=== PATIENT | female | born 1940 | race Two or more races ===

== ENCOUNTER 2017-06-22 18:07 | Emergency (ER) | payer MEDICARE, OTHER ==
[2017-06-22 18:49] VITALS: BP 180/81
--- NOTE | 2017-06-22 19:02 | EDM.PDOC ---
<Elver Leija W - Last Filed: 06/22/17 19:13> ED HPI GENERAL MEDICAL PROBLEM - General Chief Complaint: General Stated Complaint: Not feeling well Time Seen by Provider: 06/22/17 18:31 Source of Information: Reports: Patient, Family History Limitations: Reports: Language Barrier, Other (hard of hearing) - History of Present Illness INITIAL COMMENTS - FREE TEXT/NARRATIVE: Pt. presents to ER with daughter and son. Pt. has been complaining of "not feeling well" to family today, but states that she has been fatigued for several days. Family is concerns as the pt. has had elevated blood sugars at home-often in the 300-400 range. Today, the pts. blood sugar was approx. 250mg/ dl. Family states that the pt. previously had refused to take insulin, but stated that she is currently taking 16mg/dl of Lantus. The pt., however, states that she is taking 18 units per her last clinic visit with Dr. Alon Guzman. Family states that the pt. is often untruthful about how much insulin she takes, and previously had been taking 14 units instead of 16 units of lantus. The pt. resides in an [facility] in [place]. She previously was at [facility]. She does not get home health. Family states that she is very non-compliant and often eats a large box of doughnuts on her own. She also has a diffuse rash to her extremities and torso for which she has seen derm. She is currently on oral prednisone and triamcinolone cream for this. This rash is extremely pruritic and is very stressful for the pt. Duration: Other (Approx. 1 week.) Location: Reports: Generalized Severity: Moderate Associated Symptoms: Reports: Rash, Other Generalized Pain Score (Numeric/FACES): 2 - Related Data Allergies Allergy/AdvReac Type Severity Reaction Status Date / Time No Known Allergies Allergy Verified 11/05/16 03:58 Home Meds: Home Meds Aspirin [Halfprin] 81 mg PO DAILY@1200 #365 tab.ec 03/22/14 [Rx] Omeprazole Magnesium [Prilosec Otc] 20 mg PO DAILY 10/20/15 [History] metFORMIN [Glucophage] 1 tab PO BIDM 01/17/16 [History] Cetirizine HCl [Zyrtec] 10 mg PO DAILY 06/22/17 [History] Doxepin [SINEquan] 10 mg BEDTIME 06/22/17 [History] Insulin Glarg,Human.Rec.Analog [LantUS Solostar] 18 units BEDTIME 06/22/17 [ History] Triamcinolone Acetonide [Triamcinolone Acetonide 0.1% Crm] 1 applic ASDIRECTED PRN 06/22/17 [History] diphenhydrAMINE [Benadryl] 25 mg PO BEDTIME 06/22/17 [History] Past Medical History HEENT History: Reports: Other (See Below) Other HEENT History: presbyopia, astigmatism, myopia Cardiovascular History: Reports: Hypertension Respiratory History: Reports: Other (See Below) Other Respiratory History: chronic SOB Gastrointestinal History: Reports: Diverticulosis 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 (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 Below) Other OB/BYN History: puritus vulva, vulvar dermatitis Musculoskeletal History: Reports: Other (See Below) Other Musculoskeletal History: multiple pelvic fractures Neurological History: Reports: Vertigo Endocrine/Metabolic History: Reports: Diabetes, Type II - Past Surgical History GI Surgical History: Reports: Appendectomy, Other (See Below) Social & Family History - Tobacco Use Smoking Status *Q: Unknown Ever Smoked Years of Tobacco use: 40 Used Tobacco, but Quit: Yes Month Tobacco Last Used: January Second Hand Smoke Exposure: No - Alcohol Use Days Per Week of Alcohol Use: 0 - Recreational Drug Use Recreational Drug Use: No ED ROS GENERAL - Review of Systems Review Of Systems: See Below Constitutional: Reports: Malaise, Fatigue HEENT: Reports: No Symptoms Respiratory: Reports: No Symptoms Cardiovascular: Reports: No Symptoms Endocrine: Reports: No Symptoms GI/Abdominal: Reports: No Symptoms : Reports: No Symptoms Musculoskeletal: Reports: No Symptoms Skin: Reports: Pruritis, Rash, Erythema Neurological: Reports: No Symptoms Psychiatric: Reports: No Symptoms Hematologic/Lymphatic: Reports: No Symptoms Immunologic: Reports: Other (Intensely pruritic rash to torso, extremities, and scalp.) ED EXAM, GENERAL - Physical Exam Exam: See Below Exam Limited By: Other (Pt. very hard of hearing) General Appearance: Alert, No Apparent Distress Eye Exam: Bilateral Eye: Normal Inspection Ears: Normal External Exam Nose: Normal Inspection, Normal Mucosa, No Blood Throat/Mouth: Normal Inspection, Normal Lips, Normal Teeth, Normal Oropharynx, Normal Voice, No Airway Compromise Head: Atraumatic, Normocephalic Neck: Normal Inspection, Supple, Non-Tender Respiratory/Chest: No Respiratory Distress, Lungs Clear, Normal Breath Sounds, No Accessory Muscle Use, Chest Non-Tender Cardiovascular: Normal Peripheral Pulses, Regular Rate, Rhythm, No Edema, No Murmur GI/Abdominal: Normal Bowel Sounds, Soft, Non-Tender, No Mass Back Exam: Normal Inspection, Full Range of Motion, Other (fine, raised excoriated rash to mid lower back) Extremities: Normal Inspection, Normal Range of Motion, Non-Tender, No Pedal Edema, Redness, Other (excoriations and erythema noted to extremities.) Neurological: Alert, Oriented, CN II-XII Intact Psychiatric: Normal Affect Skin Exam: Warm, Dry, Rash (Fine, raised rash to torso and extremities), Other Lymphatic: No Adenopathy Course - Vital Signs Last Recorded V/S: Last Vital Signs Temp 36.0 C 06/22/17 18:31 Pulse 98 06/22/17 18:31 Resp 20 06/22/17 18:31 BP 180/81 H 06/22/17 18:31 Pulse Ox - Orders/Labs/Meds Labs: Laboratory Tests 06/22/17 06/22/17 06/22/17 Range/Units 18:50 18:50 18:50 WBC 11.5 H (4.0-10.0) x10^3/uL RBC 4.26 (4.00-5.50) x10^6/uL Hgb 12.4 (12.0-16.0) g/dL Hct 36.8 (33.0-47.0) % MCV 86.4 (78.0-93.0) fL MCH 29.1 (26.0-32.0) pg MCHC 33.7 (32.0-36.0) g/dL RDW Coeff of Leslie 13.3 (10.0-15.0) % Plt Count 484 H (130-400) x10^3/uL Neut % (Auto) 52.7 (50.0-80.0) % Lymph % (Auto) 21.3 L (25.0-50.0) % [place] % (Auto) 8.8 (2.0-11.0) % Eos % (Auto) 15.9 H (0.0-4.0) % Baso % (Auto) 1.3 H (0.2-1.2) % Sodium 137 (136-145) mmol/L Potassium 4.4 (3.5-5.1) mmol/L Chloride 100 (98-107) mmol/L Carbon Dioxide 28 (21-32) mmol/L BUN 22 H (7-18) mg/dL Creatinine 0.7 (0.55-1.02) mg/dL Est Cr Clr Drug Dosing 46.01 mL/min Estimated GFR (MDRD) > 60 Glucose 243 H (74-106) mg/dL Hemoglobin A1c 9.7 H (4.5-6.2) % Calcium 9.7 (8.5-10.1) mg/dL Corrected Calcium 10.26 H (8.5-10.1) mg/dL Total Bilirubin 0.4 (0.2-1.0) mg/dL AST 26 (15-37) U/L ALT 39 (14-59) U/L Alkaline Phosphatase 191 H (46-116) U/L Total Protein 7.4 (6.4-8.2) g/dL Albumin 3.3 L (3.4-5.0) g/dL Globulin 4.1 Albumin/Globulin Ratio 0.80 Urine Color (YELLOW) Urine Appearance (CLEAR) Urine pH (5.0-8.0) Ur Specific [place] Urine Protein (NEGATIVE) mg/dL Urine Glucose (UA) (NEGATIVE) mg/dL Urine Ketones (NEGATIVE) mg/dL Urine Occult Blood (NEGATIVE) Urine Nitrite (NEGATIVE) Urine Bilirubin (NEGATIVE) Urine Urobilinogen (0.2) EU/dL Ur Leukocyte Esterase (NEGATIVE) Urine RBC (NOT SEEN) /HPF Urine WBC (NOT SEEN) /HPF Ur Squamous Epith Cells (NEGATIVE) /HPF Amorphous Sediment Urine Bacteria (NEGATIVE) /HPF Granular Casts (NEGATIVE) /HPF Urine Mucus (NEGATIVE) /LPF 06/22/17 Range/Units 19:03 WBC (4.0-10.0) x10^3/uL RBC (4.00-5.50) x10^6/uL Hgb (12.0-16.0) g/dL Hct (33.0-47.0) % MCV (78.0-93.0) fL MCH (26.0-32.0) pg MCHC (32.0-36.0) g/dL RDW Coeff of Leslie (10.0-15.0) % Plt Count (130-400) x10^3/uL Neut % (Auto) (50.0-80.0) % Lymph % (Auto) (25.0-50.0) % [place] % (Auto) (2.0-11.0) % Eos % (Auto) (0.0-4.0) % Baso % (Auto) (0.2-1.2) % Sodium (136-145) mmol/L Potassium (3.5-5.1) mmol/L Chloride (98-107) mmol/L Carbon Dioxide (21-32) mmol/L BUN (7-18) mg/dL Creatinine (0.55-1.02) mg/dL Est Cr Clr Drug Dosing mL/min Estimated GFR (MDRD) Glucose (74-106) mg/dL Hemoglobin A1c (4.5-6.2) % Calcium (8.5-10.1) mg/dL Corrected Calcium (8.5-10.1) mg/dL Total Bilirubin (0.2-1.0) mg/dL AST (15-37) U/L ALT (14-59) U/L Alkaline Phosphatase (46-116) U/L Total Protein (6.4-8.2) g/dL Albumin (3.4-5.0) g/dL Globulin Albumin/Globulin Ratio Urine Color Yellow (YELLOW) Urine Appearance Slightly cloudy H (CLEAR) Urine pH 5.0 (5.0-8.0) Ur Specific [place] 1.025 Urine Protein >=300 H (NEGATIVE) mg/dL Urine Glucose (UA) 500 H (NEGATIVE) mg/dL Urine Ketones Negative (NEGATIVE) mg/dL Urine Occult Blood Small H (NEGATIVE) Urine Nitrite Negative (NEGATIVE) Urine Bilirubin Negative (NEGATIVE) Urine Urobilinogen 0.2 (0.2) EU/dL Ur Leukocyte Esterase Negative (NEGATIVE) Urine RBC 0-5 (NOT SEEN) /HPF Urine WBC 0-5 (NOT SEEN) /HPF Ur Squamous Epith Cells Rare (NEGATIVE) /HPF Amorphous Sediment Moderate Urine Bacteria Few H (NEGATIVE) /HPF Granular Casts Few H (NEGATIVE) /HPF Urine Mucus Few H (NEGATIVE) /LPF Departure - Departure Disposition: Home, Self-Care 01 Clinical Impression: Hyperglycemia due to type 2 diabetes mellitus, Urticaria - Discharge Information Instructions: Eczema, Pruritus Referrals: Merlin Flores MD [Primary Care Provider] - Forms: ED Department Discharge Additional Instructions: I suggest follow up with her primary care provider Dr. Merlin Guzman in the next 7-10 days. For your skin condition I recommend applying a thick emollient cream such as Eucerin, Cetaphil, or Neutrogena. With the son directly after showering in a thick paste. He will want to probably wear a undershirt as this may cause some staining of your garments due to the high oil content. You should take the Zyrtec in the morning, and the Benadryl at night before bed. He also need to have better control of her diabetes. I would also recommend that someone come in to help you administer your insulin. Please call us with any questions or concerns. MLP Sign Off - Signature Requirements MLP Sign Off: Yes :: Pt. care was transferred to JOSSY Randhawa at 1913 (shift change). Please refer to his documentation regarding the disposition of this pt. <Guillermo Castillo - Last Filed: 06/22/17 19:58> ED HPI GENERAL MEDICAL PROBLEM - History of Present Illness INITIAL COMMENTS - FREE TEXT/NARRATIVE: Care assumed from Elver Leija at 1905 Course - Re-Assessments/Exams Free Text/Narrative Re-Assessment/Exam: 06/22/17 19:47 Review of labs; patient does have a slight elevation of WBCs at 11.5. Patient's hemoglobin A1c is 9.7, potassium is 4.4, sodium is 137, urinalysis is negative for acute UTI. Urine does show some protein as well as glucose. Urine is negative for nitrates or leukocyte esterase. 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; Z79.4 - correction (current) use of insulin; Z79.4 - tank terminal gauger (current) use of insulin; Z79.4 - tank terminal gauger (current) use of insulin (2) Generalized pruritus SNOMED Code(s): 522732258 Code(s): L29.9 - PRURITUS, UNSPECIFIED Status: Acute Priority: Low Current Visit: No (3) Urticaria SNOMED Code(s): 635336619 Code(s): L50.9 - URTICARIA, UNSPECIFIED Status: Acute Priority: Low Current Visit: Yes - Problem List Review Problem List Initiated/Reviewed/Updated: Yes - Assessment/Plan Assessment:: Hyperglycemia Atopic dermatitis Plan: I suggest follow up with her primary care provider Dr. Merlin Guzman in the next 7-10 days. For your skin condition I recommend applying a thick emollient cream such as Eucerin, Cetaphil, or Neutrogena. With the son directly after showering in a thick paste. He will want to probably wear a undershirt as this may cause some staining of your garments due to the high oil content. You should take the Zyrtec in the morning, and the Benadryl at night before bed. He also need to have better control of her diabetes. I would also recommend that someone come in to help you administer your insulin. Please call us with any questions or concerns.
[2017-06-22 19:19] LABS: CHLORIDE,CL 100 mmol/L (98-107); SODIUM,NA 137 mmol/L (136-145)
== END 2017-06-22 20:05 | disposition home or self-care (01) ==
LOC: VM.ED 18:07
DX: E11.65 Type 2 diabetes mellitus with hyperglycemia (principal); L50.9 Urticaria, unspecified; I10 Essential (primary) hypertension; Z79.82 Long term (current) use of aspirin; Z79.4 Long term (current) use of insulin; Z79.899 Other long term (current) drug therapy
CPT/HCPCS: 36415; 80053; 81001; 83036; 83605; 85025; 99284; 99284-GF

== ENCOUNTER 2017-09-14 18:44 | Emergency (ER) | payer MEDICARE, OTHER ==
--- NOTE | 2017-09-14 19:19 | EDM.PDOC ---
<Elver Leija W - Last Filed: 09/14/17 19:13> ED HPI GENERAL MEDICAL PROBLEM - General Chief Complaint: Chest Pain Stated Complaint: Chest pain, back pain, fatigue, dizziness, and headache Time Seen by Provider: 09/14/17 19:15 Source of Information: Reports: Patient History Limitations: Reports: No Limitations - History of Present Illness INITIAL COMMENTS - FREE TEXT/NARRATIVE: Pt. presents to ER with a constellation of symptoms. Pt. states that she has been experiencing point tenderness to her chest and back yesterday. She states that she is extremely fatigued and dizzy. She states that her appetite is poor, and that she isn't drinking water "like she should". She denies any rashes. No vomiting or diarrhea, but complains of diffuse abdominal pain and nausea. - Related Data Allergies Allergy/AdvReac Type Severity Reaction Status Date / Time No Known Allergies Allergy Verified 11/05/16 03:58 Home Meds: Home Meds Aspirin [Halfprin] 81 mg PO DAILY@1200 #365 tab.ec 03/22/14 [Rx] Omeprazole Magnesium [Prilosec Otc] 20 mg PO DAILY 10/20/15 [History] metFORMIN [Glucophage] 1 tab PO BIDM 01/17/16 [History] Cetirizine HCl [Zyrtec] 10 mg PO DAILY 06/22/17 [History] Doxepin [SINEquan] 10 mg BEDTIME 06/22/17 [History] Insulin Glarg,Human.Rec.Analog [LantUS Solostar] 18 units BEDTIME 06/22/17 [ History] Triamcinolone Acetonide [Triamcinolone Acetonide 0.1% Crm] 1 applic ASDIRECTED PRN 06/22/17 [History] diphenhydrAMINE [Benadryl] 25 mg PO BEDTIME 06/22/17 [History] Past Medical History HEENT History: Reports: Other (See Below) Other HEENT History: presbyopia, astigmatism, myopia Cardiovascular History: Reports: Hypertension Respiratory History: Reports: Other (See Below) Other Respiratory History: chronic SOB Gastrointestinal History: Reports: Diverticulosis 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 (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 Below) Other OB/BYN History: puritus vulva, vulvar dermatitis Musculoskeletal History: Reports: Other (See Below) Other Musculoskeletal History: multiple pelvic fractures Neurological History: Reports: Vertigo Endocrine/Metabolic History: Reports: Diabetes, Type II Dermatologic History: Reports: Urticaria, Other (See Below) Other Dermatologic History: generalized rash - Past Surgical History GI Surgical History: Reports: Appendectomy, Other (See Below) Social & Family History - Tobacco Use Smoking Status *Q: Unknown Ever Smoked Years of Tobacco use: 40 Packs/Tins Daily: 0.5 Used Tobacco, but Quit: Yes Month Tobacco Last Used: January Second Hand Smoke Exposure: No - Alcohol Use Days Per Week of Alcohol Use: 0 - Recreational Drug Use Recreational Drug Use: No Course - Orders/Labs/Meds Orders: Active Orders 24 hr Category Date Time Status RT Aerosol Therapy [RC] ASDIRECTED Care 09/14/17 20:38 Ordered Chest 2V [CR] Stat Exams 09/14/17 19:07 Ordered Sodium Chloride 0.9% [Saline Flush] Med 09/14/17 19:20 Ordered 10 ml FLUSH ASDIRECTED PRN Saline Lock Insert [OM.PC] Routine Oth 09/14/17 19:20 Ordered Medication Orders Sodium Chloride (Saline Flush) 10 ml FLUSH ASDIRECTED PRN PRN Reason: Keep Vein Open Meds: Medications Generic Name Dose Route Start Last Admin Trade Name Freq PRN Reason Stop Dose Admin Sodium Chloride 10 ml 09/14/17 19:20 Saline Flush FLUSH ASDIRECTED PRN Keep Vein Open Discontinued Medications Generic Name Dose Route Start Last Admin Trade Name Freq PRN Reason Stop Dose Admin Albuterol/Ipratropium 3 ml 09/14/17 20:38 09/14/17 20:40 Duoneb 3.0-0.5 Mg/3 Ml NEB 09/14/17 20:39 3 ml ONETIME ONE Administration Lactated Ringer's 1,000 mls @ 999 mls/hr 09/14/17 19:20 09/14/17 19:45 Ringers, Lactated IV 09/14/17 20:20 999 mls/hr .BOLUS ONE Administration Departure - Departure Disposition: Home, Self-Care 01 Clinical Impression: Dehydration symptoms - Discharge Information Instructions: Nonspecific Chest Pain, [id number], Chronic Obstructive Pulmonary Disease, [id number], Smoking Cessation, Tips for Success, Easy-to- Read Forms: ED Department Discharge Additional Instructions: Your influenza screen was negative. You need to stay hydrated. At least 8 8 ounce glasses of water. Your x-ray showed COPD so you need to stop smoking and visit with your primary doctor regarding starting on an inhaler of some type. Follow up with your primary doctor for additional symptoms. If you have any questions or concerns, please call. - My Orders Last 24 Hours: My Active Orders 09/14/17 19:20 Sodium Chloride 0.9% [Saline Flush] 10 ml FLUSH ASDIRECTED PRN Saline Lock Insert [OM.PC] Routine 09/14/17 20:38 RT Aerosol Therapy [RC] ASDIRECTED - Assessment/Plan Last 24 Hours: My Active Orders 09/14/17 19:20 Sodium Chloride 0.9% [Saline Flush] 10 ml FLUSH ASDIRECTED PRN Saline Lock Insert [OM.PC] Routine 09/14/17 20:38 RT Aerosol Therapy [RC] ASDIRECTED <Guillemro Castillo M - Last Filed: 09/14/17 21:57> ED ROS GENERAL - Review of Systems Review Of Systems: ROS reveals no pertinent complaints other than HPI. ED EXAM, GENERAL - Physical Exam Exam: See Below Exam Limited By: No Limitations General Appearance: Alert, WD/WN, Mild Distress Eye Exam: Bilateral Eye: PERRL Ears: Normal TMs Nose: Normal Inspection, Normal Mucosa, No Blood Throat/Mouth: Normal Inspection, Normal Lips, Normal Teeth, Normal Gums, Normal Oropharynx, Normal Voice, No Airway Compromise Head: Atraumatic, Normocephalic Neck: Normal Inspection, Supple, Non-Tender, Full Range of Motion Respiratory/Chest: No Respiratory Distress, No Accessory Muscle Use, Chest Non- Tender, Crackles Cardiovascular: Normal Peripheral Pulses, Regular Rate, Rhythm, No Edema, No Gallop, No JVD, No Murmur, No Rub GI/Abdominal: Normal Bowel Sounds, Soft, Non-Tender, No Organomegaly, No Distention, No Abnormal Bruit, No Mass Extremities: Normal Inspection, Normal Range of Motion, Non-Tender, Normal Capillary Refill, No Pedal Edema Neurological: Alert, Oriented, CN II-XII Intact, Normal Cognition, Normal Gait, Normal Reflexes, No Motor/Sensory Deficits Psychiatric: Normal Affect, Normal Mood Skin Exam: Warm, Dry, Intact, Normal Color, No Rash Course - Re-Assessments/Exams Free Text/Narrative Re-Assessment/Exam: 09/14/17 21:49 Chest x-ray shows some COPD, no infiltrates. Influenza negative. Departure - Departure Time of Disposition: 21:17 Condition: Good - Problem List & Annotations (1) Dehydration symptoms SNOMED Code(s): 0346268 Code(s): R63.8 - OTHER SYMPTOMS AND SIGNS CONCERNING FOOD AND FLUID INTAKE Status: Acute Priority: Low Current Visit: Yes - Problem List Review Problem List Initiated/Reviewed/Updated: Yes - Assessment/Plan Assessment:: dehydration symptoms copd Plan: Your influenza screen was negative. You need to stay hydrated. At least 8 8 ounce glasses of water. Take the medrol dose pack in the morning and with food. Your x-ray showed COPD so you need to stop smoking and visit with your primary doctor regarding starting on an inhaler of some type. Follow up with your primary doctor for additional symptoms. If you have any questions or concerns, please call.
[2017-09-14] MEDS ORDERED: Lactated Ringers 1,000 ML IV ONE (19:20)
[2017-09-14] MEDS ORDERED: Sodium Chloride 0.9% 10 ML Syringe FLUSH PRN (19:20)
[2017-09-14] MEDS ORDERED: Albuterol/Ipratropium 3.0-0.5 MG/3 ML Neb Soln NEB ONE (20:38)
[2017-09-15 05:46] VITALS: BP 163/60
== END 2017-09-14 21:17 | disposition home or self-care (01) ==
LOC: VM.ED 18:44
DX: J44.9 Chronic obstructive pulmonary disease, unspecified (principal); R53.83 Other fatigue; R42 Dizziness and giddiness; I10 Essential (primary) hypertension; E11.9 Type 2 diabetes mellitus without complications; Z87.891 Personal history of nicotine dependence; Z79.4 Long term (current) use of insulin; Z79.82 Long term (current) use of aspirin; Z79.899 Other long term (current) drug therapy
CPT/HCPCS: 71046; 87804; 94640; 96360; 99285; J7120; 99284-GF

== ENCOUNTER 2021-01-11 10:14 | Inpatient (IN) | payer MEDICARE, OTHER ==
[2021-01-11] MEDS: Sodium Chloride 0.9% 1,000 ML IV SCH ×3 (10:25→15:09)
--- NOTE | 2021-01-11 11:14 | CR ---
[id number] RAD/RAD Chest PA or AP 1V EXAM: RAD Chest PA or AP 1V INDICATION: NEAR SYNCOPE. COMPARISON: September 2017. Discussion/impression: Cardiomediastinal silhouette is normal in size and contour. COPD. Lungs are clear. No pleural effusion or pneumothorax. Chronic healed left-sided rib fractures. Ahsan Valdez MD 01/11/21 1113 Thank you for allowing us to participate in the care of your patient.
[2021-01-11 11:34] LABS: CHLORIDE,CL 104 mmol/L (98-107); SODIUM,NA 141 mmol/L (136-145)
[2021-01-11 11:46] LABS: ANION GAP 14.7 mmol/L (5-15)
[2021-01-11] MEDS ORDERED: Iopamidol 612 MG/ML 100 ML Bottle IVPUSH ONE (12:15)
--- NOTE | 2021-01-11 12:22 | EDM.PDOC ---
ED HPI GENERAL MEDICAL PROBLEM - General Stated Complaint: ER Time Seen by Provider: 01/11/21 10:14 Source of Information: Reports: Patient, EMS History Limitations: Reports: No Limitations - History of Present Illness INITIAL COMMENTS - FREE TEXT/NARRATIVE: Pt. presents to ER with complaints of lightheadedness/near syncope. Pt. states that she became lightheaded when she was in the dining room. Pt. states that the she did not completely lose consciousness. She states that she feels lightheaded when standing. Denies any chest pain or shortness of breath. She has not been experiencing any chest pain, shortness of breath, fever, or chills. She has had no cough. No nausea, vomiting, or diarrhea. No black/bloody stools or hemoptysis. She does complain of some diffuse abdominal discomfort. Nursing reports a positive change to orthostatic BP, with blood pressure decreasing to 80s systolic when BP was taken while standing. She also became quite lightheaded at that time as well. Onset: Today Location: Reports: Abdomen, Generalized - Related Data Allergies Allergy/AdvReac Type Severity Reaction Status Date / Time No Known Allergies Allergy Verified 01/11/21 12:45 Home Meds: Home Meds Aspirin [Halfprin] 81 mg PO DAILY@1200 #365 tab.ec 03/22/14 [Rx] metFORMIN [Glucophage] 1 tab PO BIDM 01/17/16 [History] Insulin Glarg,Human.Rec.Analog [LantUS Solostar] 18 units BEDTIME 06/22/17 [History] Acetaminophen [Acetaminophen Extra Strength] 1,000 mg PO Q6H PRN 01/11/21 [ History] Denosumab [Prolia] 60 mg SQ Q182D 01/11/21 [History] Glucagon [Gvoke Hypopen] 1 mg SQ ONETIME PRN 01/11/21 [History] Hydrochlorothiazide/Lisinopril [Lisinopril-HCTZ 10-12.5 MG] 2 tab PO DAILY 01/11/21 [History] atorvaSTATin [Lipitor] 10 mg PO BEDTIME 01/11/21 [History] traMADol [Ultram] 50 mg PO Q6H PRN 01/11/21 [History] Past Medical History HEENT History: Reports: Other (See Below) Other HEENT History: presbyopia, astigmatism, myopia Cardiovascular History: Reports: Hypertension Respiratory History: Reports: Other (See Below) Other Respiratory History: chronic SOB Gastrointestinal History: Reports: Diverticulosis 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 History: Reports: Other (See Below) Other 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 History: puritus vulva, vulvar dermatitis Musculoskeletal History: Reports: Other (See Below) Other Musculoskeletal History: multiple pelvic fractures Neurological History: Reports: Vertigo Endocrine/Metabolic History: Reports: Diabetes, Type II Dermatologic History: Reports: Urticaria, Other (See Below) Other Dermatologic History: generalized rash - Past Surgical History GI Surgical History: Reports: Appendectomy, Other (See Below) ED ROS GENERAL - Review of Systems Review Of Systems: See Below Constitutional: Reports: No Symptoms HEENT: Reports: No Symptoms Respiratory: Reports: No Symptoms Cardiovascular: Reports: No Symptoms Endocrine: Reports: No Symptoms GI/Abdominal: Reports: Abdominal Pain, Distension : Reports: No Symptoms Musculoskeletal: Reports: No Symptoms Skin: Reports: No Symptoms Neurological: Reports: Weakness Psychiatric: Reports: No Symptoms Hematologic/Lymphatic: Reports: No Symptoms Immunologic: Reports: No Symptoms ED EXAM, GENERAL - Physical Exam Exam: See Below Exam Limited By: No Limitations General Appearance: Alert, WD/WN, No Apparent Distress Eye Exam: Bilateral Eye: EOMI, Normal Fundi, Normal Inspection, PERRL Head: Atraumatic, Normocephalic Respiratory/Chest: No Respiratory Distress, Lungs Clear, Normal Breath Sounds, No Accessory Muscle Use, Chest Non-Tender Cardiovascular: Normal Peripheral Pulses, Regular Rate, Rhythm, No Edema, No JVD, No Murmur GI/Abdominal: Soft, Non-Tender, Distended (Female) Exam: Deferred Rectal (Female) Exam: Deferred Back Exam: Normal Inspection, Full Range of Motion Extremities: Normal Inspection, Normal Range of Motion, No Pedal Edema, Normal Capillary Refill Neurological: Alert, Oriented, CN II-XII Intact, Normal Cognition, Normal Reflexes, No Motor/Sensory Deficits, Other (No pronator drift. No facial droop. Speech is normal. ) Psychiatric: Normal Affect, Normal Mood Skin Exam: Warm, Dry, Pallor Lymphatic: No Adenopathy #1 Interpretation Rhythm: NSR QRS: RBBB RI/PQ Interval: 1st degree AV block Course - Vital Signs Last Recorded V/S: Last Vital Signs Temp 36.2 C 01/11/21 10:20 Pulse 90 01/11/21 10:20 Resp 16 01/11/21 10:20 BP 102/35 L 01/11/21 10:20 Pulse Ox 94 L 01/11/21 10:20 Orthostatic Blood Pressure [ 118/64 Standing] Orthostatic Blood Pressure [ 108/75 Sitting] Orthostatic Blood Pressure [ 105/72 Supine] - Orders/Labs/Meds Orders: Active Orders 24 hr Category Date Time Status Insert Urinary Catheter [OM.PC] Q24H Care 01/11/21 12:00 Ordered Urinary Catheter Assessment [RC] ASDIRECTED Care 01/11/21 13:23 Active Abdomen Pelvis w Cont [CT] Stat Exams 01/11/21 12:09 Taken Sodium Chloride 0.9% [Normal Saline] 1,000 ml Med 01/11/21 10:30 Active IV ASDIRECTED Sodium Chloride 0.9% [Saline Flush] Med 01/11/21 10:30 Active 10 ml FLUSH ASDIRECTED PRN Peripheral IV Insertion Adult [OM.PC] Routine Oth 01/11/21 10:30 Ordered Medication Orders Sodium Chloride (Normal Saline) 1,000 mls @ 1,000 mls/hr IV ASDIRECTED AKANKSHA Last Admin: 01/11/21 12:00 Dose: 1,000 mls/hr Documented by: Infusion: 01/11/21 11:25 Dose: 1,000 mls/hr Documented by: Admin: 01/11/21 10:25 Dose: 1,000 mls/hr Documented by: ANGELA Sodium Chloride (Sodium Chloride 0.9% 10 Ml Syringe) 10 ml FLUSH ASDIRECTED PRN PRN Reason: Keep Vein Open Labs: Laboratory Tests 01/11/21 01/11/21 01/11/21 Range/Units 10:38 10:53 10:53 WBC 15.7 H (4.0-10.0) x10^3/uL RBC 4.05 (4.00-5.50) x10^6/uL Hgb 11.4 L (12.0-16.0) g/dL Hct 35.0 (33.0-47.0) % MCV 86.4 (78.0-93.0) fL MCH 28.1 (26.0-32.0) pg MCHC 32.6 (32.0-36.0) g/dL RDW Coeff of Leslie 13.3 (10.0-15.0) % Plt Count 467 H (130-400) x10^3/uL Add Manual Diff Yes Neutrophils % (Manual) 50 (50-80) % Band Neutrophils % 5 (0-6) % Lymphocytes % (Manual) 26 (25-50) % Reactive Lymphs % 5 H (0) % Monocytes % (Manual) 11 (2-11) % Eosinophils % (Manual) 2 (0-4) % Metamyelocytes % 1 H (0) % Platelet Estimate Adequate PT 10.6 (9.9-12.5) SEC INR 1.0 L (2.0-3.5) Sodium (136-145) mmol/L Potassium (3.5-5.1) mmol/L Chloride (98-107) mmol/L Carbon Dioxide (21-32) mmol/L Anion Gap (5-15) mmol/L BUN (7-18) mg/dL Creatinine (0.55-1.02) mg/dL Est Cr Clr Drug Dosing Estimated GFR (MDRD) Glucose (70-99) mg/dL Lactic Acid (0.4-2.0) mmol/L Calcium (8.5-10.1) mg/dL Corrected Calcium (8.5-10.1) mg/dL Total Bilirubin (0.2-1.0) mg/dL AST (15-37) U/L ALT (14-59) U/L Alkaline Phosphatase (46-116) U/L Troponin I High Sens (<=51) ng/L C-Reactive Protein (<=0.9) mg/dL Total Protein (6.4-8.2) g/dL Albumin (3.4-5.0) g/dL Globulin Albumin/Globulin Ratio TSH, Ultra Sensitive (0.358-3.74) uIU/mL Urine Color (YELLOW) Urine Appearance (CLEAR) Urine pH (5.0-8.0) Ur Specific Northrop Urine Protein (NEGATIVE) mg/dL Urine Glucose (UA) (NEGATIVE) mg/dL Urine Ketones (NEGATIVE) mg/dL Urine Occult Blood (NEGATIVE) Urine Nitrite (NEGATIVE) Urine Bilirubin (NEGATIVE) Urine Urobilinogen (0.2) EU/dL Ur Leukocyte Esterase (NEGATIVE) U Hyaline Cast (Auto) Urine RBC (NOT SEEN) /HPF Urine WBC (NOT SEEN) /HPF Ur Squamous Epith Cells (NOT SEEN) /HPF Amorphous Sediment Urine Bacteria (NOT SEEN) /HPF Urine Mucus (NOT SEEN) /LPF SARS CoV-2 RNA Rapid DIAMOND Negative (NEGATIVE) 01/11/21 01/11/21 01/11/21 Range/Units 10:53 12:10 12:57 WBC (4.0-10.0) x10^3/uL RBC (4.00-5.50) x10^6/uL Hgb (12.0-16.0) g/dL Hct (33.0-47.0) % MCV (78.0-93.0) fL MCH (26.0-32.0) pg MCHC (32.0-36.0) g/dL RDW Coeff of Leslie (10.0-15.0) % Plt Count (130-400) x10^3/uL Add Manual Diff Neutrophils % (Manual) (50-80) % Band Neutrophils % (0-6) % Lymphocytes % (Manual) (25-50) % Reactive Lymphs % (0) % Monocytes % (Manual) (2-11) % Eosinophils % (Manual) (0-4) % Metamyelocytes % (0) % Platelet Estimate PT (9.9-12.5) SEC INR (2.0-3.5) Sodium 141 (136-145) mmol/L Potassium 3.7 (3.5-5.1) mmol/L Chloride 104 (98-107) mmol/L Carbon Dioxide 26 (21-32) mmol/L Anion Gap 14.7 (5-15) mmol/L BUN 34 H (7-18) mg/dL Creatinine 1.5 H (0.55-1.02) mg/dL Est Cr Clr Drug Dosing TNP Estimated GFR (MDRD) 33 Glucose 255 H (70-99) mg/dL Lactic Acid 1.5 (0.4-2.0) mmol/L Calcium 9.4 (8.5-10.1) mg/dL Corrected Calcium 10.04 (8.5-10.1) mg/dL Total Bilirubin 0.4 (0.2-1.0) mg/dL AST 31 (15-37) U/L ALT 34 (14-59) U/L Alkaline Phosphatase 107 (46-116) U/L Troponin I High Sens 13 (<=51) ng/L C-Reactive Protein < 0.2 (<=0.9) mg/dL Total Protein 7.2 (6.4-8.2) g/dL Albumin 3.2 L (3.4-5.0) g/dL Globulin 4.0 Albumin/Globulin Ratio 0.80 TSH, Ultra Sensitive 2.709 (0.358-3.74) uIU/mL Urine Color Yellow (YELLOW) Urine Appearance Clear (CLEAR) Urine pH 5.0 (5.0-8.0) Ur Specific Northrop 1.015 Urine Protein 30 H (NEGATIVE) mg/dL Urine Glucose (UA) 500 H (NEGATIVE) mg/dL Urine Ketones Negative (NEGATIVE) mg/dL Urine Occult Blood Negative (NEGATIVE) Urine Nitrite Negative (NEGATIVE) Urine Bilirubin Negative (NEGATIVE) Urine Urobilinogen 0.2 (0.2) EU/dL Ur Leukocyte Esterase Negative (NEGATIVE) U Hyaline Cast (Auto) Many Urine RBC 0-5 (NOT SEEN) /HPF Urine WBC 0-5 (NOT SEEN) /HPF Ur Squamous Epith Cells Rare (NOT SEEN) /HPF Amorphous Sediment Few Urine Bacteria Not seen (NOT SEEN) /HPF Urine Mucus Not seen (NOT SEEN) /LPF SARS CoV-2 RNA Rapid DIAMOND (NEGATIVE) Meds: Medications Generic Name Dose Route Start Last Admin Trade Name Freq PRN Reason Stop Dose Admin Sodium Chloride 1,000 mls @ 1,000 mls/hr 01/11/21 10:30 01/11/21 12:00 Normal Saline IV 1,000 mls/hr ASDIRECTED AKANKSHA Administration Sodium Chloride 10 ml 01/11/21 10:30 Sodium Chloride 0.9% 10 Ml Syringe FLUSH ASDIRECTED PRN Keep Vein Open Discontinued Medications Generic Name Dose Route Start Last Admin Trade Name Freq PRN Reason Stop Dose Admin Iopamidol 100 ml 01/11/21 12:15 01/11/21 12:56 Iopamidol 612 Mg/Ml 100 Ml Bottle IVPUSH 01/11/21 12:16 100 ml ONETIME ONE Administration - Radiology Interpretation Free Text/Narrative:: Chest x-ray is negative CT abdomen/pelvis with contrast obtained. Evidence of extensive diverticulosis. Mild distention of large bowel. No free fluid/free air. Discussed findings with Dr. Mathew who can't rule out early diverticulitis. Departure - Departure Time of Disposition: 13:58 Disposition: DC/Tfer to Acute Hospital 02 Clinical Impression: Diverticulitis, Near syncope, Postural hypotension - Discharge Information Referrals: Esme Acosta MD [Primary Care Provider] - Sepsis Event Note (ED) - Focused Exam Vital Signs: Vital Signs Temp Pulse Resp BP Pulse Ox 01/11/21 10:20 36.2 C 90 16 102/35 L 94 L - Problem List Review Problem List Initiated/Reviewed/Updated: Yes - My Orders Last 24 Hours: My Active Orders 01/11/21 10:30 Sodium Chloride 0.9% [Normal Saline] 1,000 ml IV ASDIRECTED Sodium Chloride 0.9% [Saline Flush] 10 ml FLUSH ASDIRECTED PRN Peripheral IV Insertion Adult [OM.PC] Routine 01/11/21 12:00 Insert Urinary Catheter [OM.PC] Q24H 01/11/21 12:09 Abdomen Pelvis w Cont [CT] Stat 01/11/21 13:23 Urinary Catheter Assessment [RC] ASDIRECTED - Assessment/Plan Last 24 Hours: My Active Orders 01/11/21 10:30 Sodium Chloride 0.9% [Normal Saline] 1,000 ml IV ASDIRECTED Sodium Chloride 0.9% [Saline Flush] 10 ml FLUSH ASDIRECTED PRN Peripheral IV Insertion Adult [OM.PC] Routine 01/11/21 12:00 Insert Urinary Catheter [OM.PC] Q24H 01/11/21 12:09 Abdomen Pelvis w Cont [CT] Stat 01/11/21 13:23 Urinary Catheter Assessment [RC] ASDIRECTED Plan: Pt. will be admitted acutely. Dr. Acosta with admit the patient. Pt. was started on IV Cipro 400mg every 12 hours and metronidazole 500mg TID. Pt. was given approx. 750ml normal saline while in ER. Discussed findings with patient/daughter.
--- NOTE | 2021-01-11 13:39 | CT ---
[id number] CT/CT Abdomen Pelvis W IV EXAM: CT Abdomen Pelvis W IV CLINICAL DATA: ABDOMINAL PAIN ELEVATED WHITE BLOOD CELL COUNT COMPARISON: CORRELATION IS MADE WITH MARCH 22, 2014 FINDINGS: There is a moderate hiatal hernia The liver and spleen, adrenals, kidneys, pancreas, and aorta show no acute abnormalities A 1.5 cm left adrenal low density nodule is likely a benign adenoma There are diffuse atheromatous calcifications The gallbladder is not distended There is mild distention of the large bowel There is uncomplicated diverticular disease There is a Julian catheter in the urinary bladder The uterus has been removed There is no free fluid or free air There is no bowel wall thickening The large bowel demonstrates extensive diverticular disease IMPRESSION: NO ACUTE PROCESS. Sonido Mathew MD 01/11/21 0302 Thank you for allowing us to participate in the care of your patient.
[2021-01-11] MEDS ORDERED: Ciprofloxacin in D5W 400 MG in Premix Bag 1 BAG IV SCH ×2 (13:45)
[2021-01-11] MEDS: metroNIDAZOLE/Normal Saline 500 MG in Premix Bag 1 BAG IV SCH ×2 (14:46→21:20)
[2021-01-11] MEDS: cefTRIAXone 2 GM Vial IVPUSH SCH (15:06)
[2021-01-11] MEDS: Sodium Chloride 0.9% 10 ML Syringe FLUSH PRN (15:06)
[2021-01-11] MEDS: Ondansetron 4 MG/2 ML SDV IVPUSH PRN (15:06)
[2021-01-11] MEDS ORDERED: Acetaminophen 500 MG Tab PO PRN (15:13)
[2021-01-11] MEDS ORDERED: Glucagon,Human Recombinant 1 MG Vial IM PRN (15:13)
[2021-01-11] MEDS ORDERED: 50% Dextrose in Water 50 ML Syringe IV PRN (15:13)
--- NOTE | 2021-01-11 15:17 | PCM.HP.2 ---
H&P History of Present Illness - General Date of Service: 01/11/21 Admit Problem/Dx: Admission Diagnosis/Problem Admission Diagnosis/Problem Diverticulitis Source of Information: Patient History Limitations: Reports: No Limitations - History of Present Illness Initial Comments - Free Text/Narative: Ms. Talley is an 80 yo female with PMH of DM, HTN, HLD, GERD, and osteoporosis who presented to the ER via EMS for evaluation of repeated presyncopal episodes this morning. She has not been eating as well for the past few days due to not having an appetite. She was not experiencing abdominal pain. Her stools have been normal. She has not had any nausea or vomiting. She was at the table for breakfast when she stood up and felt lightheaded. She sat back down and this happened twice more. Therefore, staff at the assisted living called 911. She denies any chest pain or palpitations. No shortness of breath. She has not been feeling ill recently with any fever, chills, or UTI symptoms. Abdomen Pain Score (Numeric/FACES): 8 - Related Data Allergies/Adverse Reactions: Allergies Allergy/AdvReac Type Severity Reaction Status Date / Time ciprofloxacin [From Cipro] Allergy Rash Verified 01/11/21 14:53 Home Medications: Home Meds Aspirin [Halfprin] 81 mg PO DAILY@1200 #365 tab.ec 03/22/14 [Rx] Insulin Glarg,Human.Rec.Analog [LantUS Solostar] 14 units SQ BEDTIME 06/22/17 [History] Acetaminophen [Acetaminophen Extra Strength] 1,000 mg PO Q6H PRN 01/11/21 [History] Denosumab [Prolia] 60 mg SQ Q180D 01/11/21 [History] Glucagon,Human Recombinant [Glucagon Emergency Kit] 1 mg IV ASDIRECTED PRN 01/11/21 [History] Hydrochlorothiazide/Lisinopril [Lisinopril-HCTZ 20-12.5 MG] 2 tab PO DAILY 01/11/21 [History] Mirtazapine 7.5 mg PO BEDTIME 01/11/21 [History] Pantoprazole Sodium [Protonix] 40 mg PO BIDAC 01/11/21 [History] atorvaSTATin [Lipitor] 10 mg PO BEDTIME 01/11/21 [History] metFORMIN HCl [Metformin HCl] 1,000 mg PO BIDMEALS 01/11/21 [History] Past Medical History HEENT History: Reports: Cataract, Other (See Below) Other HEENT History: presbyopia, astigmatism, myopia Cardiovascular History: Reports: Hypertension Respiratory History: Reports: Other (See Below) Other Respiratory History: chronic SOB Gastrointestinal History: Reports: Diverticulosis Genitourinary History: Reports: None [employer] History: Reports: Other (See Below) Other OB/BYN History: puritus vulva, vulvar dermatitis Musculoskeletal History: Reports: Other (See Below) Other Musculoskeletal History: multiple pelvic fractures Neurological History: Reports: Vertigo Psychiatric History: Reports: None Endocrine/Metabolic History: Reports: Diabetes, Type II Dermatologic History: Reports: Urticaria, Other (See Below) Other Dermatologic History: generalized rash - Past Surgical History HEENT Surgical History: Reports: Cataract Surgery GI Surgical History: Reports: Appendectomy Social & Family History - Family History Oncologic: Reports: Prostate, Renal - Tobacco Use Tobacco Use Status *Q: Former Tobacco User - Alcohol Use Alcohol Use History: No Alcohol Use in Last Twelve Months: No - Recreational Drug Use Recreational Drug Use: No - Living Situation & Occupation Living situation: Reports: , Assisted Living Occupation: Retired H&P Review of Systems - Review of Systems: Review Of Systems: See Below General: Reports: Decreased Appetite. Denies: Fever, Chills HEENT: Reports: No Symptoms Pulmonary: Reports: No Symptoms Cardiovascular: Reports: Lightheadedness. Denies: Chest Pain, Palpitations, Edema Gastrointestinal: Reports: Decreased Appetite. Denies: Abdominal Pain, Constipation, Diarrhea, Nausea, Vomiting Genitourinary: Reports: No Symptoms Musculoskeletal: Reports: No Symptoms Skin: Reports: No Symptoms Psychiatric: Reports: No Symptoms Neurological: Reports: No Symptoms Exam - Exam Exam: See Below - Vital Signs Vital Signs: Last Vital Signs Temp 36.2 C 01/11/21 10:20 Pulse 90 01/11/21 10:20 Resp 16 01/11/21 10:20 BP 102/35 L 01/11/21 10:20 Pulse Ox 94 L 01/11/21 10:20 Orthostatic Blood Pressure [ 118/64 Standing] Orthostatic Blood Pressure [ 108/75 Sitting] Orthostatic Blood Pressure [ 105/72 Supine] Weight: 47.627 kg - Exam General: Alert, Oriented, Cooperative HEENT: Conjunctiva Clear, Mucosa Moist & [place], Posterior Pharynx Clear, Pupils Equal, Pupils Reactive Neck: Supple, Trachea Midline. No: Lymphadenopathy, Thyromegaly Lungs: Clear to Auscultation, Normal Respiratory Effort Cardiovascular: Regular Rate, Regular Rhythm, Normal S1, Normal S2 GI/Abdominal Exam: Normal Bowel Sounds, Soft, No Organomegaly, No Distention, No Mass, Tender. No: Guarding, Rigid, Rebound Extremities: Normal Inspection, Non-Tender, No Pedal Edema Peripheral Pulses: 2+: Radial (L), Radial (R) Skin: Warm, Dry, Intact Neuro Extensive - Mental Status: Alert, Oriented x3, Normal Mood/Affect - Patient Data Lab Results Last 24 hrs: Laboratory Results - last 24 hr 01/11/21 01/11/21 01/11/21 Range/Units 10:38 10:53 10:53 WBC 15.7 H (4.0-10.0) x10^3/uL RBC 4.05 (4.00-5.50) x10^6/uL Hgb 11.4 L (12.0-16.0) g/dL Hct 35.0 (33.0-47.0) % MCV 86.4 (78.0-93.0) fL MCH 28.1 (26.0-32.0) pg MCHC 32.6 (32.0-36.0) g/dL RDW Coeff of Leslie 13.3 (10.0-15.0) % Plt Count 467 H (130-400) x10^3/uL Add Manual Diff Yes Neutrophils % (Manual) 50 (50-80) % Band Neutrophils % 5 (0-6) % Lymphocytes % (Manual) 26 (25-50) % Reactive Lymphs % 5 H (0) % Monocytes % (Manual) 11 (2-11) % Eosinophils % (Manual) 2 (0-4) % Metamyelocytes % 1 H (0) % Platelet Estimate Adequate PT 10.6 (9.9-12.5) SEC INR 1.0 L (2.0-3.5) Sodium (136-145) mmol/L Potassium (3.5-5.1) mmol/L Chloride (98-107) mmol/L Carbon Dioxide (21-32) mmol/L Anion Gap (5-15) mmol/L BUN (7-18) mg/dL Creatinine (0.55-1.02) mg/dL Est Cr Clr Drug Dosing Estimated GFR (MDRD) Glucose (70-99) mg/dL Lactic Acid (0.4-2.0) mmol/L Calcium (8.5-10.1) mg/dL Corrected Calcium (8.5-10.1) mg/dL Total Bilirubin (0.2-1.0) mg/dL AST (15-37) U/L ALT (14-59) U/L Alkaline Phosphatase (46-116) U/L Troponin I High Sens (<=51) ng/L C-Reactive Protein (<=0.9) mg/dL Total Protein (6.4-8.2) g/dL Albumin (3.4-5.0) g/dL Globulin Albumin/Globulin Ratio TSH, Ultra Sensitive (0.358-3.74) uIU/mL Urine Color (YELLOW) Urine Appearance (CLEAR) Urine pH (5.0-8.0) Ur Specific [place] Urine Protein (NEGATIVE) mg/dL Urine Glucose (UA) (NEGATIVE) mg/dL Urine Ketones (NEGATIVE) mg/dL Urine Occult Blood (NEGATIVE) Urine Nitrite (NEGATIVE) Urine Bilirubin (NEGATIVE) Urine Urobilinogen (0.2) EU/dL Ur Leukocyte Esterase (NEGATIVE) U Hyaline Cast (Auto) Urine RBC (NOT SEEN) /HPF Urine WBC (NOT SEEN) /HPF Ur Squamous Epith Cells (NOT SEEN) /HPF Amorphous Sediment Urine Bacteria (NOT SEEN) /HPF Urine Mucus (NOT SEEN) /LPF SARS CoV-2 RNA Rapid DIAMOND Negative (NEGATIVE) 01/11/21 01/11/21 01/11/21 Range/Units 10:53 12:10 12:57 WBC (4.0-10.0) x10^3/uL RBC (4.00-5.50) x10^6/uL Hgb (12.0-16.0) g/dL Hct (33.0-47.0) % MCV (78.0-93.0) fL MCH (26.0-32.0) pg MCHC (32.0-36.0) g/dL RDW Coeff of Leslie (10.0-15.0) % Plt Count (130-400) x10^3/uL Add Manual Diff Neutrophils % (Manual) (50-80) % Band Neutrophils % (0-6) % Lymphocytes % (Manual) (25-50) % Reactive Lymphs % (0) % Monocytes % (Manual) (2-11) % Eosinophils % (Manual) (0-4) % Metamyelocytes % (0) % Platelet Estimate PT (9.9-12.5) SEC INR (2.0-3.5) Sodium 141 (136-145) mmol/L Potassium 3.7 (3.5-5.1) mmol/L Chloride 104 (98-107) mmol/L Carbon Dioxide 26 (21-32) mmol/L Anion Gap 14.7 (5-15) mmol/L BUN 34 H (7-18) mg/dL Creatinine 1.5 H (0.55-1.02) mg/dL Est Cr Clr Drug Dosing TNP Estimated GFR (MDRD) 33 Glucose 255 H (70-99) mg/dL Lactic Acid 1.5 (0.4-2.0) mmol/L Calcium 9.4 (8.5-10.1) mg/dL Corrected Calcium 10.04 (8.5-10.1) mg/dL Total Bilirubin 0.4 (0.2-1.0) mg/dL AST 31 (15-37) U/L ALT 34 (14-59) U/L Alkaline Phosphatase 107 (46-116) U/L Troponin I High Sens 13 (<=51) ng/L C-Reactive Protein < 0.2 (<=0.9) mg/dL Total Protein 7.2 (6.4-8.2) g/dL Albumin 3.2 L (3.4-5.0) g/dL Globulin 4.0 Albumin/Globulin Ratio 0.80 TSH, Ultra Sensitive 2.709 (0.358-3.74) uIU/mL Urine Color Yellow (YELLOW) Urine Appearance Clear (CLEAR) Urine pH 5.0 (5.0-8.0) Ur Specific [place] 1.015 Urine Protein 30 H (NEGATIVE) mg/dL Urine Glucose (UA) 500 H (NEGATIVE) mg/dL Urine Ketones Negative (NEGATIVE) mg/dL Urine Occult Blood Negative (NEGATIVE) Urine Nitrite Negative (NEGATIVE) Urine Bilirubin Negative (NEGATIVE) Urine Urobilinogen 0.2 (0.2) EU/dL Ur Leukocyte Esterase Negative (NEGATIVE) U Hyaline Cast (Auto) Many Urine RBC 0-5 (NOT SEEN) /HPF Urine WBC 0-5 (NOT SEEN) /HPF Ur Squamous Epith Cells Rare (NOT SEEN) /HPF Amorphous Sediment Few Urine Bacteria Not seen (NOT SEEN) /HPF Urine Mucus Not seen (NOT SEEN) /LPF SARS CoV-2 RNA Rapid DIAMOND (NEGATIVE) Result Diagrams: 01/11/21 10:53 01/11/21 10:53 Sepsis Event Note - Evaluation Sepsis Screening Result: No Definite Risk - Focused Exam Vital Signs: Vital Signs Temp Pulse Resp BP Pulse Ox 01/11/21 10:20 36.2 C 90 16 102/35 L 94 L - Problem List (1) Diverticulitis SNOMED Code(s): 939979283 ICD Code: K57.92 - DVTRCLI OF INTEST, PART UNSP, W/O PERF OR ABSCESS W/O BLEED Status: Acute Current Visit: Yes (2) Acute kidney failure SNOMED Code(s): 94183980 ICD Code: N17.9 - ACUTE KIDNEY FAILURE, UNSPECIFIED Status: Acute Current Visit: Yes Qualifiers: Acute renal failure type: unspecified Qualified Code(s): N17.9 - Acute kidney failure, unspecified (3) Near syncope SNOMED Code(s): 020731799 ICD Code: R55 - SYNCOPE AND COLLAPSE Status: Acute Current Visit: Yes (4) Postural hypotension SNOMED Code(s): 27717606 ICD Code: I95.1 - ORTHOSTATIC HYPOTENSION Status: Acute Current Visit: Yes (5) Hypertension SNOMED Code(s): 33889432 ICD Code: I10 - ESSENTIAL (PRIMARY) HYPERTENSION Status: Chronic Current Visit: Yes Qualifiers: Hypertension type: essential hypertension Qualified Code(s): I10 - Essential (primary) hypertension (6) Type 2 diabetes mellitus SNOMED Code(s): 02474212 ICD Code: E11.9 - TYPE 2 DIABETES MELLITUS WITHOUT COMPLICATIONS Status: Chronic Current Visit: Yes Qualifiers: Diabetes mellitus skilled nursing insulin use: with skilled nursing use Diabetes mellitus complication status: without complication Qualified Code(s): E11.9 - Type 2 diabetes mellitus without complications; Z79.4 - [facility] (current) use of insulin (7) Hyperlipidemia SNOMED Code(s): 45566934 ICD Code: E78.5 - HYPERLIPIDEMIA, UNSPECIFIED Status: Chronic Current Visit: Yes Qualifiers: Hyperlipidemia type: unspecified Qualified Code(s): E78.5 - Hyperlipidemia, unspecified (8) GERD (gastroesophageal reflux disease) SNOMED Code(s): 560812078 ICD Code: K21.9 - GASTRO-ESOPHAGEAL REFLUX DISEASE WITHOUT ESOPHAGITIS Status: Chronic Current Visit: Yes Qualifiers: Esophagitis presence: esophagitis presence not specified Qualified Code(s): K21.9 - Gastro-esophageal reflux disease without esophagitis (9) Osteoporosis SNOMED Code(s): 10733960 ICD Code: M81.0 - AGE-RELATED OSTEOPOROSIS W/O CURRENT PATHOLOGICAL FRACTURE Status: Chronic Current Visit: Yes Qualifiers: Osteoporosis type: age-related Presence of current pathological fracture: without current pathological fracture Qualified Code(s): M81.0 - Age-related osteoporosis without current pathological fracture Problem List Initiated/Reviewed/Updated: Yes Orders Last 24hrs: Active Orders 24 hr Category Date Time Status Patient Status [ADT] Routine ADT 01/11/21 13:54 Active Blood Glucose Check, Bedside [RC] QIDACANDBED Care 01/11/21 14:35 Ordered Cardiac Monitoring [RC] CONTINUOUS Care 01/11/21 15:13 Ordered Dietary Supplements [RC] BIDMEALS Care 01/11/21 14:39 Ordered Insert Urinary Catheter [OM.PC] Q24H Care 01/11/21 12:00 Ordered Notify Provider Vital Signs [RC] ASDIRECTED Care 01/11/21 14:35 Ordered Oxygen Therapy [RC] PRN Care 01/11/21 14:35 Ordered Up With Assistance [RC] ASDIRECTED Care 01/11/21 14:35 Ordered Urinary Catheter Assessment [RC] 08,20 Care 01/11/21 13:23 Active VTE/DVT Education [RC] PER UNIT ROUTINE Care 01/11/21 14:35 Ordered Vital Signs [RC] Q4H Care 01/11/21 14:35 Ordered Regular Diet [DIET] Diet 01/11/21 Dinner Ordered BASIC METABOLIC PANEL,BMP [CHEM] Routine Lab 01/12/21 05:11 Ordered CBC WITH AUTO DIFF [HEME] Routine Lab 01/12/21 05:11 Ordered TROPONIN I HIGH SENSITIVITY [CHEM] Routine Lab 01/11/21 15:16 Ordered Acetaminophen [Tylenol Extra Strength] Med 01/11/21 15:13 Ordered 1,000 mg PO Q6H PRN Aspirin [Halfprin] Med 01/12/21 12:00 Ordered 81 mg PO DAILY@1200 Dextrose 50% in Water Med 01/11/21 15:13 Ordered 50 ml IV ASDIRECTED PRN Glucagon,Human Recombinant [GlucaGen] Med 01/11/21 15:13 Ordered 1 mg IM ASDIRECTED PRN Insulin Glarg,Human.Rec.Analog [LantUS Solostar] Med 01/11/21 20:00 Ordered 12 units SUBCUT BEDTIME Insulin Lispro [HumaLOG] Med 01/11/21 18:00 Ordered See Protocol SUBCUT TIDMEALS Ondansetron [Zofran] Med 01/11/21 14:55 Ordered 4 mg IVPUSH Q8H PRN Sodium Chloride 0.9% @ 100 MLS/HR(1000ml) Med 01/11/21 14:45 Ordered Sodium Chloride 0.9% [Normal Saline] 1,000 ml IV ASDIRECTED Sodium Chloride 0.9% [Saline Flush] Med 01/11/21 10:30 Active 10 ml FLUSH ASDIRECTED PRN atorvaSTATin [Lipitor] Med 01/11/21 20:00 Ordered 10 mg PO BEDTIME cefTRIAXone [Rocephin] Med 01/11/21 14:45 Ordered 2 gm IVPUSH Q24H metroNIDAZOLE/Normal Saline [Flagyl in NS 500 MG/100 ML Med 01/11/21 14:00 Active ] 500 mg Premix Bag 1 bag IV Q8H Peripheral IV Insertion Adult [OM.PC] Routine Oth 01/11/21 10:30 Ordered Resuscitation Status Routine Resus Stat 01/11/21 14:35 Ordered Medication Orders Acetaminophen (Acetaminophen 500 Mg Tab) 1,000 mg PO Q6H PRN PRN Reason: Pain Aspirin (Aspirin 81 Mg Tab.Ec) 81 mg PO DAILY@1200 AKANKSHA Atorvastatin Calcium (Atorvastatin 10 Mg Tab) 10 mg PO BEDTIME AKANKSHA Ceftriaxone Sodium (Ceftriaxone 2 Gm Vial) 2 gm IVPUSH Q24H AKANKSHA Last Admin: 01/11/21 15:06 Dose: 2 gm Documented by: ALEJANDRO Dextrose/Water (50% Dextrose In Water 50 Ml Syringe) 50 ml IV ASDIRECTED PRN PRN Reason: Hypoglycemia Glucagon (Glucagon,Human Recombinant 1 Mg Vial) 1 mg IM ASDIRECTED PRN PRN Reason: Hypoglycemia Metronidazole 500 mg/ Premix 100 mls @ 100 mls/hr IV Q8H AKANKSHA Last Admin: 01/11/21 14:46 Dose: 100 mls/hr Documented by: ALEJANDRO Sodium Chloride (Normal Saline) 1,000 mls @ 100 mls/hr IV ASDIRECTED AKANKSHA Last Admin: 01/11/21 15:09 Dose: 100 mls/hr Documented by: ALEJANDRO Insulin Human Lispro (Insulin Lispro 100 Units/Ml 3 Ml Vial) 0 unit SUBCUT TIDMEALS AKANKSHA; Protocol Non-Formulary Medication (Insulin Glarg,Human.Rec.Analog [Lantus Solostar]) 12 units SUBCUT BEDTIME AKANKSHA Ondansetron HCl (Ondansetron 4 Mg/2 Ml Sdv) 4 mg IVPUSH Q8H PRN PRN Reason: Nausea Last Admin: 01/11/21 15:06 Dose: 4 mg Documented by: ALEJANDRO Sodium Chloride (Sodium Chloride 0.9% 10 Ml Syringe) 10 ml FLUSH ASDIRECTED PRN PRN Reason: Keep Vein Open Last Admin: 01/11/21 15:06 Dose: 10 ml Documented by: ALEJANDRO Assessment/Plan Comment:: #1 Diverticulitis - WBC elevated with early changes of diverticulitis on her CT scan. No other explanation for infection (U/A and CXR normal, skin clear). - Patient has an allergy to ciprofloxacin. Therefore, she is started on ceftriaxone and metronidazole. Plan will be augmentin for homegoing once she is improving. - Full liquid diet. - Zofran PRN nausea. - Low dose morphine PRN pain. She has tolerated this in the past without any issues. #2 SKYE - Likely prerenal related to dehydration. - She received a bolus in the ER already; will do 100 cc/hr of NS overnight. - Recheck labs in the am. #3 Near syncope #4 Postural hypotension #5 Hypertension - Near syncope felt to be secondary to dehydration. - However, based on her age and comorbidities, underlying cardiac cause will need to be considered. - Telemetry x 48 hours. - Trend troponins. - Hold home antihypertensives. - IV fluids as above. #6 Type 2 DM - Hold metformin. - Continue lantus. - QID glucoses with low dose SSI. #7 Hyperlipidemia #8 GERD #9 Osteoporosis - Continue home medications except prolia, which is held. Patient is admitted to acute as she will need IV fluids, IV antibiotics, and a hospital stay spanning 2 midnights. Anticipate d/c back to assisted living in 2- 3 days. See plan as above. Holding off on pharmacologic VTE prophylaxis until her renal function and hemoglobin are trended; will reassess in the am. Code status is DNR/DNI - discussed on admission. - Mortality Measure Prognosis:: Good
[2021-01-11] MEDS: Insulin Lispro 100 Units/ML 3 ML Vial SUBCUT SCH (17:44)
[2021-01-11] MEDS ORDERED: Morphine 2 MG/ML SYRINGE IVPUSH PRN (18:20)
[2021-01-11] MEDS: Insulin Glarg,Human.Rec.Analog 100 Unit/ML SUBCUT SCH (19:24)
[2021-01-11] MEDS: atorvaSTATin 10 MG Tab PO SCH (19:29)
[2021-01-12] MEDS: metroNIDAZOLE/Normal Saline 500 MG in Premix Bag 1 BAG IV SCH ×3 (05:20→21:18)
[2021-01-12] MEDS: Sodium Chloride 0.9% 1,000 ML IV SCH (05:23)
[2021-01-12] MEDS: Insulin Lispro 100 Units/ML 3 ML Vial SUBCUT SCH ×3 (07:47→17:52)
[2021-01-12] MEDS: Sodium Chloride 0.9% 10 ML Syringe FLUSH PRN ×2 (07:48→15:19)
[2021-01-12] MEDS: Ondansetron 4 MG/2 ML SDV IVPUSH PRN (07:49)
[2021-01-12 09:13] LABS: ANION GAP 11.6 mmol/L (5-15)
--- NOTE | 2021-01-12 10:14 | PCM.PN ---
- General Info Date of Service: 01/12/21 Subjective Update: 80 yo female hospital day #2 admitted with diverticulitis and multiple near syncopal episodes. She states she is feeling much better today. She did not tolerate supper very well last night but was able to eat cream of wheat for breakfast this morning without any issues. No nausea or abdominal pain. She had a large non-bloody BM last night. She has not had any fever. She has not been out of bed yet. - Review of Systems General: Reports: No Symptoms HEENT: Reports: No Symptoms Pulmonary: Reports: No Symptoms Cardiovascular: Reports: No Symptoms Gastrointestinal: Reports: No Symptoms Genitourinary: Reports: No Symptoms Musculoskeletal: Reports: No Symptoms Skin: Reports: No Symptoms Neurological: Reports: No Symptoms - Patient Data Vitals - Most Recent: Last Vital Signs Temp 37.0 C 01/12/21 09:55 Pulse 76 01/12/21 09:55 Resp 18 01/12/21 09:55 BP 125/40 L 01/12/21 09:55 Pulse Ox 98 01/12/21 09:55 Orthostatic Blood Pressure [ 118/64 Standing] Orthostatic Blood Pressure [ 132/82 Sitting] Orthostatic Blood Pressure [ 128/75 Supine] Weight - Most Recent: 50.405 kg I&O - Last 24 Hours: Intake & Output 01/11/21 01/12/21 01/12/21 22:59 06:59 14:59 Intake Total 740 720 120 Output Total 650 600 Balance 90 120 120 Lab Results Last 24 Hours: Laboratory Results - last 24 hr 01/11/21 01/11/21 01/11/21 Range/Units 10:38 10:53 10:53 WBC 15.7 H (4.0-10.0) x10^3/uL RBC 4.05 (4.00-5.50) x10^6/uL Hgb 11.4 L (12.0-16.0) g/dL Hct 35.0 (33.0-47.0) % MCV 86.4 (78.0-93.0) fL MCH 28.1 (26.0-32.0) pg MCHC 32.6 (32.0-36.0) g/dL RDW Coeff of Leslie 13.3 (10.0-15.0) % Plt Count 467 H (130-400) x10^3/uL Neut % (Auto) (50.0-80.0) % Lymph % (Auto) (25.0-50.0) % [place] % (Auto) (2.0-11.0) % Eos % (Auto) (0.0-4.0) % Baso % (Auto) (0.2-1.2) % Add Manual Diff Yes Neutrophils % (Manual) 50 (50-80) % Band Neutrophils % 5 (0-6) % Lymphocytes % (Manual) 26 (25-50) % Reactive Lymphs % 5 H (0) % Monocytes % (Manual) 11 (2-11) % Eosinophils % (Manual) 2 (0-4) % Metamyelocytes % 1 H (0) % Platelet Estimate Adequate PT 10.6 (9.9-12.5) SEC INR 1.0 L (2.0-3.5) Sodium (136-145) mmol/L Potassium (3.5-5.1) mmol/L Chloride (98-107) mmol/L Carbon Dioxide (21-32) mmol/L Anion Gap (5-15) mmol/L BUN (7-18) mg/dL Creatinine (0.55-1.02) mg/dL Est Cr Clr Drug Dosing Estimated GFR (MDRD) Glucose (70-99) mg/dL POC Glucose (70-99) mg/dL Lactic Acid (0.4-2.0) mmol/L Calcium (8.5-10.1) mg/dL Corrected Calcium (8.5-10.1) mg/dL Total Bilirubin (0.2-1.0) mg/dL AST (15-37) U/L ALT (14-59) U/L Alkaline Phosphatase (46-116) U/L Troponin I High Sens (<=51) ng/L C-Reactive Protein (<=0.9) mg/dL Total Protein (6.4-8.2) g/dL Albumin (3.4-5.0) g/dL Globulin Albumin/Globulin Ratio TSH, Ultra Sensitive (0.358-3.74) uIU/mL Urine Color (YELLOW) Urine Appearance (CLEAR) Urine pH (5.0-8.0) Ur Specific [place] Urine Protein (NEGATIVE) mg/dL Urine Glucose (UA) (NEGATIVE) mg/dL Urine Ketones (NEGATIVE) mg/dL Urine Occult Blood (NEGATIVE) Urine Nitrite (NEGATIVE) Urine Bilirubin (NEGATIVE) Urine Urobilinogen (0.2) EU/dL Ur Leukocyte Esterase (NEGATIVE) U Hyaline Cast (Auto) Urine RBC (NOT SEEN) /HPF Urine WBC (NOT SEEN) /HPF Ur Squamous Epith Cells (NOT SEEN) /HPF Amorphous Sediment Urine Bacteria (NOT SEEN) /HPF Urine Mucus (NOT SEEN) /LPF SARS CoV-2 RNA Rapid DIAMOND Negative (NEGATIVE) 01/11/21 01/11/21 01/11/21 Range/Units 10:53 12:10 12:57 WBC (4.0-10.0) x10^3/uL RBC (4.00-5.50) x10^6/uL Hgb (12.0-16.0) g/dL Hct (33.0-47.0) % MCV (78.0-93.0) fL MCH (26.0-32.0) pg MCHC (32.0-36.0) g/dL RDW Coeff of Leslie (10.0-15.0) % Plt Count (130-400) x10^3/uL Neut % (Auto) (50.0-80.0) % Lymph % (Auto) (25.0-50.0) % [place]eadle % (Auto) (2.0-11.0) % Eos % (Auto) (0.0-4.0) % Baso % (Auto) (0.2-1.2) % Add Manual Diff Neutrophils % (Manual) (50-80) % Band Neutrophils % (0-6) % Lymphocytes % (Manual) (25-50) % Reactive Lymphs % (0) % Monocytes % (Manual) (2-11) % Eosinophils % (Manual) (0-4) % Metamyelocytes % (0) % Platelet Estimate PT (9.9-12.5) SEC INR (2.0-3.5) Sodium 141 (136-145) mmol/L Potassium 3.7 (3.5-5.1) mmol/L Chloride 104 (98-107) mmol/L Carbon Dioxide 26 (21-32) mmol/L Anion Gap 14.7 (5-15) mmol/L BUN 34 H (7-18) mg/dL Creatinine 1.5 H (0.55-1.02) mg/dL Est Cr Clr Drug Dosing TNP Estimated GFR (MDRD) 33 Glucose 255 H (70-99) mg/dL POC Glucose (70-99) mg/dL Lactic Acid 1.5 (0.4-2.0) mmol/L Calcium 9.4 (8.5-10.1) mg/dL Corrected Calcium 10.04 (8.5-10.1) mg/dL Total Bilirubin 0.4 (0.2-1.0) mg/dL AST 31 (15-37) U/L ALT 34 (14-59) U/L Alkaline Phosphatase 107 (46-116) U/L Troponin I High Sens 13 (<=51) ng/L C-Reactive Protein < 0.2 (<=0.9) mg/dL Total Protein 7.2 (6.4-8.2) g/dL Albumin 3.2 L (3.4-5.0) g/dL Globulin 4.0 Albumin/Globulin Ratio 0.80 TSH, Ultra Sensitive 2.709 (0.358-3.74) uIU/mL Urine Color Yellow (YELLOW) Urine Appearance Clear (CLEAR) Urine pH 5.0 (5.0-8.0) Ur Specific [place] 1.015 Urine Protein 30 H (NEGATIVE) mg/dL Urine Glucose (UA) 500 H (NEGATIVE) mg/dL Urine Ketones Negative (NEGATIVE) mg/dL Urine Occult Blood Negative (NEGATIVE) Urine Nitrite Negative (NEGATIVE) Urine Bilirubin Negative (NEGATIVE) Urine Urobilinogen 0.2 (0.2) EU/dL Ur Leukocyte Esterase Negative (NEGATIVE) U Hyaline Cast (Auto) Many Urine RBC 0-5 (NOT SEEN) /HPF Urine WBC 0-5 (NOT SEEN) /HPF Ur Squamous Epith Cells Rare (NOT SEEN) /HPF Amorphous Sediment Few Urine Bacteria Not seen (NOT SEEN) /HPF Urine Mucus Not seen (NOT SEEN) /LPF SARS CoV-2 RNA Rapid DIAMOND (NEGATIVE) 01/11/21 01/11/21 01/11/21 Range/Units 15:35 17:14 19:23 WBC (4.0-10.0) x10^3/uL RBC (4.00-5.50) x10^6/uL Hgb (12.0-16.0) g/dL Hct (33.0-47.0) % MCV (78.0-93.0) fL MCH (26.0-32.0) pg MCHC (32.0-36.0) g/dL RDW Coeff of Leslie (10.0-15.0) % Plt Count (130-400) x10^3/uL Neut % (Auto) (50.0-80.0) % Lymph % (Auto) (25.0-50.0) % [place]eadle % (Auto) (2.0-11.0) % Eos % (Auto) (0.0-4.0) % Baso % (Auto) (0.2-1.2) % Add Manual Diff Neutrophils % (Manual) (50-80) % Band Neutrophils % (0-6) % Lymphocytes % (Manual) (25-50) % Reactive Lymphs % (0) % Monocytes % (Manual) (2-11) % Eosinophils % (Manual) (0-4) % Metamyelocytes % (0) % Platelet Estimate PT (9.9-12.5) SEC INR (2.0-3.5) Sodium (136-145) mmol/L Potassium (3.5-5.1) mmol/L Chloride (98-107) mmol/L Carbon Dioxide (21-32) mmol/L Anion Gap (5-15) mmol/L BUN (7-18) mg/dL Creatinine (0.55-1.02) mg/dL Est Cr Clr Drug Dosing Estimated GFR (MDRD) Glucose (70-99) mg/dL POC Glucose 207 H 184 H (70-99) mg/dL Lactic Acid (0.4-2.0) mmol/L Calcium (8.5-10.1) mg/dL Corrected Calcium (8.5-10.1) mg/dL Total Bilirubin (0.2-1.0) mg/dL AST (15-37) U/L ALT (14-59) U/L Alkaline Phosphatase (46-116) U/L Troponin I High Sens 32 (<=51) ng/L C-Reactive Protein (<=0.9) mg/dL Total Protein (6.4-8.2) g/dL Albumin (3.4-5.0) g/dL Globulin Albumin/Globulin Ratio TSH, Ultra Sensitive (0.358-3.74) uIU/mL Urine Color (YELLOW) Urine Appearance (CLEAR) Urine pH (5.0-8.0) Ur Specific [place] Urine Protein (NEGATIVE) mg/dL Urine Glucose (UA) (NEGATIVE) mg/dL Urine Ketones (NEGATIVE) mg/dL Urine Occult Blood (NEGATIVE) Urine Nitrite (NEGATIVE) Urine Bilirubin (NEGATIVE) Urine Urobilinogen (0.2) EU/dL Ur Leukocyte Esterase (NEGATIVE) U Hyaline Cast (Auto) Urine RBC (NOT SEEN) /HPF Urine WBC (NOT SEEN) /HPF Ur Squamous Epith Cells (NOT SEEN) /HPF Amorphous Sediment Urine Bacteria (NOT SEEN) /HPF Urine Mucus (NOT SEEN) /LPF SARS CoV-2 RNA Rapid DIAMOND (NEGATIVE) 01/12/21 01/12/21 01/12/21 Range/Units 06:32 08:30 08:30 WBC 9.5 (4.0-10.0) x10^3/uL RBC 3.23 L (4.00-5.50) x10^6/uL Hgb 9.1 L D (12.0-16.0) g/dL Hct 28.4 L (33.0-47.0) % MCV 87.9 (78.0-93.0) fL MCH 28.2 (26.0-32.0) pg MCHC 32.0 (32.0-36.0) g/dL RDW Coeff of Leslie 13.5 (10.0-15.0) % Plt Count 343 D (130-400) x10^3/uL Neut % (Auto) 57.9 (50.0-80.0) % Lymph % (Auto) 23.5 L (25.0-50.0) % Beadle % (Auto) 12.8 H (2.0-11.0) % Eos % (Auto) 5.3 H (0.0-4.0) % Baso % (Auto) 0.5 (0.2-1.2) % Add Manual Diff Neutrophils % (Manual) (50-80) % Band Neutrophils % (0-6) % Lymphocytes % (Manual) (25-50) % Reactive Lymphs % (0) % Monocytes % (Manual) (2-11) % Eosinophils % (Manual) (0-4) % Metamyelocytes % (0) % Platelet Estimate PT (9.9-12.5) SEC INR (2.0-3.5) Sodium 142 (136-145) mmol/L Potassium 3.6 (3.5-5.1) mmol/L Chloride 108 H (98-107) mmol/L Carbon Dioxide 26 (21-32) mmol/L Anion Gap 11.6 (5-15) mmol/L BUN 24 H (7-18) mg/dL Creatinine 1.1 H (0.55-1.02) mg/dL Est Cr Clr Drug Dosing 28.32 Estimated GFR (MDRD) 48 Glucose 157 H (70-99) mg/dL POC Glucose 93 (70-99) mg/dL Lactic Acid (0.4-2.0) mmol/L Calcium 7.7 L D (8.5-10.1) mg/dL Corrected Calcium (8.5-10.1) mg/dL Total Bilirubin (0.2-1.0) mg/dL AST (15-37) U/L ALT (14-59) U/L Alkaline Phosphatase (46-116) U/L Troponin I High Sens (<=51) ng/L C-Reactive Protein (<=0.9) mg/dL Total Protein (6.4-8.2) g/dL Albumin (3.4-5.0) g/dL Globulin Albumin/Globulin Ratio TSH, Ultra Sensitive (0.358-3.74) uIU/mL Urine Color (YELLOW) Urine Appearance (CLEAR) Urine pH (5.0-8.0) Ur Specific [place] Urine Protein (NEGATIVE) mg/dL Urine Glucose (UA) (NEGATIVE) mg/dL Urine Ketones (NEGATIVE) mg/dL Urine Occult Blood (NEGATIVE) Urine Nitrite (NEGATIVE) Urine Bilirubin (NEGATIVE) Urine Urobilinogen (0.2) EU/dL Ur Leukocyte Esterase (NEGATIVE) U Hyaline Cast (Auto) Urine RBC (NOT SEEN) /HPF Urine WBC (NOT SEEN) /HPF Ur Squamous Epith Cells (NOT SEEN) /HPF Amorphous Sediment Urine Bacteria (NOT SEEN) /HPF Urine Mucus (NOT SEEN) /LPF SARS CoV-2 RNA Rapid DIAMOND (NEGATIVE) Med Orders - Current: Current Medications Acetaminophen (Acetaminophen 500 Mg Tab) 1,000 mg PO Q6H PRN PRN Reason: Pain Aspirin (Aspirin 81 Mg Tab.Ec) 81 mg PO DAILY@1200 AKANKSHA Atorvastatin Calcium (Atorvastatin 10 Mg Tab) 10 mg PO BEDTIME [facility], [facility] Last Admin: 01/11/21 19:29 Dose: 10 mg Documented by: Ceftriaxone Sodium (Ceftriaxone 2 Gm Vial) 2 gm IVPUSH Q24H [facility] Last Admin: 01/11/21 15:06 Dose: 2 gm Documented by: Dextrose/Water (50% Dextrose In Water 50 Ml Syringe) 50 ml IV ASDIRECTED PRN PRN Reason: Hypoglycemia Glucagon (Glucagon,Human Recombinant 1 Mg Vial) 1 mg IM ASDIRECTED PRN PRN Reason: Hypoglycemia Metronidazole 500 mg/ Premix 100 mls @ 100 mls/hr IV Q8H [facility] Last Admin: 01/12/21 05:20 Dose: 100 mls/hr Documented by: Sodium Chloride (Normal Saline) 1,000 mls @ 50 mls/hr IV ASDIRECTED [facility] Last Admin: 01/12/21 05:23 Dose: 100 mls/hr Documented by: Insulin Glargine (Insulin Glarg,Human.Rec.Analog 100 Unit/Ml) 12 unit SUBCUT BEDTIME [facility] Last Admin: 01/11/21 19:24 Dose: 12 units Documented by: Insulin Human Lispro (Insulin Lispro 100 Units/Ml 3 Ml Vial) 0 unit SUBCUT TIDMEALS [facility], [facility]; Protocol Last Admin: 01/12/21 07:47 Dose: Not Given Documented by: Morphine Sulfate (Morphine 2 Mg/Ml Syringe) 1 mg IVPUSH Q6H PRN PRN Reason: Pain Last Admin: 01/11/21 19:19 Dose: 1 mg Documented by: Ondansetron HCl (Ondansetron 4 Mg/2 Ml Sdv) 4 mg IVPUSH Q8H PRN PRN Reason: Nausea Last Admin: 01/12/21 07:49 Dose: 4 mg Documented by: Sodium Chloride (Sodium Chloride 0.9% 10 Ml Syringe) 10 ml FLUSH ASDIRECTED PRN PRN Reason: Keep Vein Open Last Admin: 01/12/21 07:48 Dose: 10 ml Documented by: Discontinued Medications Sodium Chloride (Normal Saline) 1,000 mls @ 1,000 mls/hr IV ASDIRECTED [facility] Last Admin: 01/11/21 12:00 Dose: 1,000 mls/hr Documented by: Ciprofloxacin/Dextrose 400 mg/ (Premix) 200 mls @ 200 mls/hr IV Q12H AKANKSHA Last Admin: 01/11/21 14:35 Dose: Not Given Documented by: Iopamidol (Iopamidol 612 Mg/Ml 100 Ml Bottle) 100 ml IVPUSH ONETIME ONE Stop: 01/11/21 12:16 Last Admin: 01/11/21 12:56 Dose: 100 ml Documented by: - Exam General: Alert, Oriented, Cooperative, No Acute Distress HEENT: Pupils Equal, Pupils Reactive, Mucous Membr. Moist/[place] Neck: Supple, Trachea Midline, No Thyromegaly. No: Lymphadenopathy Lungs: Clear to Auscultation, Normal Respiratory Effort Cardiovascular: Regular Rate, Regular Rhythm, No Murmurs GI/Abdominal Exam: Normal Bowel Sounds, Soft, Non-Tender, No Organomegaly, No Distention, No Mass Extremities: Normal Inspection, No Pedal Edema, Normal Capillary Refill Peripheral Pulses: 2+: Radial (L), Radial (R) Skin: Warm, Dry, Intact - Patient Data Lab Results Last 24 hrs: Laboratory Results - last 24 hr 01/11/21 01/11/21 01/11/21 Range/Units 10:38 10:53 10:53 WBC 15.7 H (4.0-10.0) x10^3/uL RBC 4.05 (4.00-5.50) x10^6/uL Hgb 11.4 L (12.0-16.0) g/dL Hct 35.0 (33.0-47.0) % MCV 86.4 (78.0-93.0) fL MCH 28.1 (26.0-32.0) pg MCHC 32.6 (32.0-36.0) g/dL RDW Coeff of Leslie 13.3 (10.0-15.0) % Plt Count 467 H (130-400) x10^3/uL Neut % (Auto) (50.0-80.0) % Lymph % (Auto) (25.0-50.0) % [place] % (Auto) (2.0-11.0) % Eos % (Auto) (0.0-4.0) % Baso % (Auto) (0.2-1.2) % Add Manual Diff Yes Neutrophils % (Manual) 50 (50-80) % Band Neutrophils % 5 (0-6) % Lymphocytes % (Manual) 26 (25-50) % Reactive Lymphs % 5 H (0) % Monocytes % (Manual) 11 (2-11) % Eosinophils % (Manual) 2 (0-4) % Metamyelocytes % 1 H (0) % Platelet Estimate Adequate PT 10.6 (9.9-12.5) SEC INR 1.0 L (2.0-3.5) Sodium (136-145) mmol/L Potassium (3.5-5.1) mmol/L Chloride (98-107) mmol/L Carbon Dioxide (21-32) mmol/L Anion Gap (5-15) mmol/L BUN (7-18) mg/dL Creatinine (0.55-1.02) mg/dL Est Cr Clr Drug Dosing Estimated GFR (MDRD) Glucose (70-99) mg/dL POC Glucose (70-99) mg/dL Lactic Acid (0.4-2.0) mmol/L Calcium (8.5-10.1) mg/dL Corrected Calcium (8.5-10.1) mg/dL Total Bilirubin (0.2-1.0) mg/dL AST (15-37) U/L ALT (14-59) U/L Alkaline Phosphatase (46-116) U/L Troponin I High Sens (<=51) ng/L C-Reactive Protein (<=0.9) mg/dL Total Protein (6.4-8.2) g/dL Albumin (3.4-5.0) g/dL Globulin Albumin/Globulin Ratio TSH, Ultra Sensitive (0.358-3.74) uIU/mL Urine Color (YELLOW) Urine Appearance (CLEAR) Urine pH (5.0-8.0) Ur Specific [place] Urine Protein (NEGATIVE) mg/dL Urine Glucose (UA) (NEGATIVE) mg/dL Urine Ketones (NEGATIVE) mg/dL Urine Occult Blood (NEGATIVE) Urine Nitrite (NEGATIVE) Urine Bilirubin (NEGATIVE) Urine Urobilinogen (0.2) EU/dL Ur Leukocyte Esterase (NEGATIVE) U Hyaline Cast (Auto) Urine RBC (NOT SEEN) /HPF Urine WBC (NOT SEEN) /HPF Ur Squamous Epith Cells (NOT SEEN) /HPF Amorphous Sediment Urine Bacteria (NOT SEEN) /HPF Urine Mucus (NOT SEEN) /LPF SARS CoV-2 RNA Rapid DIAMOND Negative (NEGATIVE) 01/11/21 01/11/21 01/11/21 Range/Units 10:53 12:10 12:57 WBC (4.0-10.0) x10^3/uL RBC (4.00-5.50) x10^6/uL Hgb (12.0-16.0) g/dL Hct (33.0-47.0) % MCV (78.0-93.0) fL MCH (26.0-32.0) pg MCHC (32.0-36.0) g/dL RDW Coeff of Leslie (10.0-15.0) % Plt Count (130-400) x10^3/uL Neut % (Auto) (50.0-80.0) % Lymph % (Auto) (25.0-50.0) % [place] % (Auto) (2.0-11.0) % Eos % (Auto) (0.0-4.0) % Baso % (Auto) (0.2-1.2) % Add Manual Diff Neutrophils % (Manual) (50-80) % Band Neutrophils % (0-6) % Lymphocytes % (Manual) (25-50) % Reactive Lymphs % (0) % Monocytes % (Manual) (2-11) % Eosinophils % (Manual) (0-4) % Metamyelocytes % (0) % Platelet Estimate PT (9.9-12.5) SEC INR (2.0-3.5) Sodium 141 (136-145) mmol/L Potassium 3.7 (3.5-5.1) mmol/L Chloride 104 (98-107) mmol/L Carbon Dioxide 26 (21-32) mmol/L Anion Gap 14.7 (5-15) mmol/L BUN 34 H (7-18) mg/dL Creatinine 1.5 H (0.55-1.02) mg/dL Est Cr Clr Drug Dosing TNP Estimated GFR (MDRD) 33 Glucose 255 H (70-99) mg/dL POC Glucose (70-99) mg/dL Lactic Acid 1.5 (0.4-2.0) mmol/L Calcium 9.4 (8.5-10.1) mg/dL Corrected Calcium 10.04 (8.5-10.1) mg/dL Total Bilirubin 0.4 (0.2-1.0) mg/dL AST 31 (15-37) U/L ALT 34 (14-59) U/L Alkaline Phosphatase 107 (46-116) U/L Troponin I High Sens 13 (<=51) ng/L C-Reactive Protein < 0.2 (<=0.9) mg/dL Total Protein 7.2 (6.4-8.2) g/dL Albumin 3.2 L (3.4-5.0) g/dL Globulin 4.0 Albumin/Globulin Ratio 0.80 TSH, Ultra Sensitive 2.709 (0.358-3.74) uIU/mL Urine Color Yellow (YELLOW) Urine Appearance Clear (CLEAR) Urine pH 5.0 (5.0-8.0) Ur Specific [place] 1.015 Urine Protein 30 H (NEGATIVE) mg/dL Urine Glucose (UA) 500 H (NEGATIVE) mg/dL Urine Ketones Negative (NEGATIVE) mg/dL Urine Occult Blood Negative (NEGATIVE) Urine Nitrite Negative (NEGATIVE) Urine Bilirubin Negative (NEGATIVE) Urine Urobilinogen 0.2 (0.2) EU/dL Ur Leukocyte Esterase Negative (NEGATIVE) U Hyaline Cast (Auto) Many Urine RBC 0-5 (NOT SEEN) /HPF Urine WBC 0-5 (NOT SEEN) /HPF Ur Squamous Epith Cells Rare (NOT SEEN) /HPF Amorphous Sediment Few Urine Bacteria Not seen (NOT SEEN) /HPF Urine Mucus Not seen (NOT SEEN) /LPF SARS CoV-2 RNA Rapid DIAMOND (NEGATIVE) 01/11/21 01/11/21 01/11/21 Range/Units 15:35 17:14 19:23 WBC (4.0-10.0) x10^3/uL RBC (4.00-5.50) x10^6/uL Hgb (12.0-16.0) g/dL Hct (33.0-47.0) % MCV (78.0-93.0) fL MCH (26.0-32.0) pg MCHC (32.0-36.0) g/dL RDW Coeff of Leslie (10.0-15.0) % Plt Count (130-400) x10^3/uL Neut % (Auto) (50.0-80.0) % Lymph % (Auto) (25.0-50.0) % [place] % (Auto) (2.0-11.0) % Eos % (Auto) (0.0-4.0) % Baso % (Auto) (0.2-1.2) % Add Manual Diff Neutrophils % (Manual) (50-80) % Band Neutrophils % (0-6) % Lymphocytes % (Manual) (25-50) % Reactive Lymphs % (0) % Monocytes % (Manual) (2-11) % Eosinophils % (Manual) (0-4) % Metamyelocytes % (0) % Platelet Estimate PT (9.9-12.5) SEC INR (2.0-3.5) Sodium (136-145) mmol/L Potassium (3.5-5.1) mmol/L Chloride (98-107) mmol/L Carbon Dioxide (21-32) mmol/L Anion Gap (5-15) mmol/L BUN (7-18) mg/dL Creatinine (0.55-1.02) mg/dL Est Cr Clr Drug Dosing Estimated GFR (MDRD) Glucose (70-99) mg/dL POC Glucose 207 H 184 H (70-99) mg/dL Lactic Acid (0.4-2.0) mmol/L Calcium (8.5-10.1) mg/dL Corrected Calcium (8.5-10.1) mg/dL Total Bilirubin (0.2-1.0) mg/dL AST (15-37) U/L ALT (14-59) U/L Alkaline Phosphatase (46-116) U/L Troponin I High Sens 32 (<=51) ng/L C-Reactive Protein (<=0.9) mg/dL Total Protein (6.4-8.2) g/dL Albumin (3.4-5.0) g/dL Globulin Albumin/Globulin Ratio TSH, Ultra Sensitive (0.358-3.74) uIU/mL Urine Color (YELLOW) Urine Appearance (CLEAR) Urine pH (5.0-8.0) Ur Specific [place] Urine Protein (NEGATIVE) mg/dL Urine Glucose (UA) (NEGATIVE) mg/dL Urine Ketones (NEGATIVE) mg/dL Urine Occult Blood (NEGATIVE) Urine Nitrite (NEGATIVE) Urine Bilirubin (NEGATIVE) Urine Urobilinogen (0.2) EU/dL Ur Leukocyte Esterase (NEGATIVE) U Hyaline Cast (Auto) Urine RBC (NOT SEEN) /HPF Urine WBC (NOT SEEN) /HPF Ur Squamous Epith Cells (NOT SEEN) /HPF Amorphous Sediment Urine Bacteria (NOT SEEN) /HPF Urine Mucus (NOT SEEN) /LPF SARS CoV-2 RNA Rapid DIAMOND (NEGATIVE) 01/12/21 01/12/21 01/12/21 Range/Units 06:32 08:30 08:30 WBC 9.5 (4.0-10.0) x10^3/uL RBC 3.23 L (4.00-5.50) x10^6/uL Hgb 9.1 L D (12.0-16.0) g/dL Hct 28.4 L (33.0-47.0) % MCV 87.9 (78.0-93.0) fL MCH 28.2 (26.0-32.0) pg MCHC 32.0 (32.0-36.0) g/dL RDW Coeff of Leslie 13.5 (10.0-15.0) % Plt Count 343 D (130-400) x10^3/uL Neut % (Auto) 57.9 (50.0-80.0) % Lymph % (Auto) 23.5 L (25.0-50.0) % [place] % (Auto) 12.8 H (2.0-11.0) % Eos % (Auto) 5.3 H (0.0-4.0) % Baso % (Auto) 0.5 (0.2-1.2) % Add Manual Diff Neutrophils % (Manual) (50-80) % Band Neutrophils % (0-6) % Lymphocytes % (Manual) (25-50) % Reactive Lymphs % (0) % Monocytes % (Manual) (2-11) % Eosinophils % (Manual) (0-4) % Metamyelocytes % (0) % Platelet Estimate PT (9.9-12.5) SEC INR (2.0-3.5) Sodium 142 (136-145) mmol/L Potassium 3.6 (3.5-5.1) mmol/L Chloride 108 H (98-107) mmol/L Carbon Dioxide 26 (21-32) mmol/L Anion Gap 11.6 (5-15) mmol/L BUN 24 H (7-18) mg/dL Creatinine 1.1 H (0.55-1.02) mg/dL Est Cr Clr Drug Dosing 28.32 Estimated GFR (MDRD) 48 Glucose 157 H (70-99) mg/dL POC Glucose 93 (70-99) mg/dL Lactic Acid (0.4-2.0) mmol/L Calcium 7.7 L D (8.5-10.1) mg/dL Corrected Calcium (8.5-10.1) mg/dL Total Bilirubin (0.2-1.0) mg/dL AST (15-37) U/L ALT (14-59) U/L Alkaline Phosphatase (46-116) U/L Troponin I High Sens (<=51) ng/L C-Reactive Protein (<=0.9) mg/dL Total Protein (6.4-8.2) g/dL Albumin (3.4-5.0) g/dL Globulin Albumin/Globulin Ratio TSH, Ultra Sensitive (0.358-3.74) uIU/mL Urine Color (YELLOW) Urine Appearance (CLEAR) Urine pH (5.0-8.0) Ur Specific [place] Urine Protein (NEGATIVE) mg/dL Urine Glucose (UA) (NEGATIVE) mg/dL Urine Ketones (NEGATIVE) mg/dL Urine Occult Blood (NEGATIVE) Urine Nitrite (NEGATIVE) Urine Bilirubin (NEGATIVE) Urine Urobilinogen (0.2) EU/dL Ur Leukocyte Esterase (NEGATIVE) U Hyaline Cast (Auto) Urine RBC (NOT SEEN) /HPF Urine WBC (NOT SEEN) /HPF Ur Squamous Epith Cells (NOT SEEN) /HPF Amorphous Sediment Urine Bacteria (NOT SEEN) /HPF Urine Mucus (NOT SEEN) /LPF SARS CoV-2 RNA Rapid DIAMOND (NEGATIVE) Result Diagrams: 01/12/21 08:30 01/12/21 08:30 Sepsis Event Note - Evaluation Sepsis Screening Result: No Definite Risk - Focused Exam Vital Signs: Vital Signs Temp Pulse Resp BP Pulse Ox 01/12/21 09:55 37.0 C 76 18 125/40 L 98 01/12/21 06:00 36.7 C 76 16 105/34 L 95 01/12/21 02:00 37.1 C 78 17 116/33 L 95 - Problem List & Annotations (1) Diverticulitis SNOMED Code(s): 965686393 Code(s): K57.92 - DVTRCLI OF INTEST, PART UNSP, W/O PERF OR ABSCESS W/O BLEED Status: Acute Current Visit: Yes (2) Anemia SNOMED Code(s): 465491578 Code(s): D64.9 - ANEMIA, UNSPECIFIED Status: Acute Current Visit: Yes Qualifiers: Anemia type: unspecified type Qualified Code(s): D64.9 - Anemia, unspecified (3) Acute kidney failure SNOMED Code(s): 76014410 Code(s): N17.9 - ACUTE KIDNEY FAILURE, UNSPECIFIED Status: Acute Current Visit: Yes Qualifiers: Acute renal failure type: unspecified Qualified Code(s): N17.9 - Acute kidney failure, unspecified (4) Near syncope SNOMED Code(s): 479256747 Code(s): R55 - SYNCOPE AND COLLAPSE Status: Acute Current Visit: Yes (5) Postural hypotension SNOMED Code(s): 47711169 Code(s): I95.1 - ORTHOSTATIC HYPOTENSION Status: Acute Current Visit: Yes (6) Hypertension SNOMED Code(s): 38073825 Code(s): I10 - ESSENTIAL (PRIMARY) HYPERTENSION Status: Chronic Current Visit: Yes Qualifiers: Hypertension type: essential hypertension Qualified Code(s): I10 - Essential (primary) hypertension (7) Type 2 diabetes mellitus SNOMED Code(s): 65488365 Code(s): E11.9 - TYPE 2 DIABETES MELLITUS WITHOUT COMPLICATIONS Status: Chronic Current Visit: Yes Qualifiers: Diabetes mellitus care home insulin use: with narrow fabric loom fixer use Diabetes mellitus complication status: without complication Qualified Code(s): E11.9 - Type 2 diabetes mellitus without complications; Z79.4 - bookseamer blindstitch (current) use of insulin (8) Hyperlipidemia SNOMED Code(s): 82298493 Code(s): E78.5 - HYPERLIPIDEMIA, UNSPECIFIED Status: Chronic Current Visit: Yes Qualifiers: Hyperlipidemia type: unspecified Qualified Code(s): E78.5 - Hyperlipidemia, unspecified (9) GERD (gastroesophageal reflux disease) SNOMED Code(s): 066168361 Code(s): K21.9 - GASTRO-ESOPHAGEAL REFLUX DISEASE WITHOUT ESOPHAGITIS Status: Chronic Current Visit: Yes Qualifiers: Esophagitis presence: esophagitis presence not specified Qualified Code(s): K21.9 - Gastro-esophageal reflux disease without esophagitis (10) Osteoporosis SNOMED Code(s): 05631786 Code(s): M81.0 - AGE-RELATED OSTEOPOROSIS W/O CURRENT PATHOLOGICAL FRACTURE Status: Chronic Current Visit: Yes Qualifiers: Osteoporosis type: age-related Presence of current pathological fracture: without current pathological fracture Qualified Code(s): M81.0 - Age-related osteoporosis without current pathological fracture - Problem List Review Problem List Initiated/Reviewed/Updated: Yes - My Orders Last 24 Hours: My Active Orders 01/11/21 14:35 Blood Glucose Check, Bedside [RC] 07,11,17,20 Notify Provider Vital Signs [RC] 06,10,14,18,22,02 Oxygen Therapy [RC] .PRN Up With Assistance [RC] 08,20 VTE/DVT Education [RC] PER UNIT ROUTINE Vital Signs [RC] 06,10,14,18,,02 Resuscitation Status Routine 01/11/21 14:39 Dietary Supplements [RC] 0730,1730 01/11/21 14:45 Sodium Chloride 0.9% [Normal Saline] 1,000 ml IV ASDIRECTED 01/11/21 14:55 Ondansetron [Zofran] 4 mg IVPUSH Q8H PRN 01/11/21 15:00 cefTRIAXone [Rocephin] 2 gm IVPUSH Q24H 01/11/21 15:13 Cardiac Monitoring [RC] 02,06,10,14,18,22 Acetaminophen [Tylenol Extra Strength] 1,000 mg PO Q6H PRN Dextrose 50% in Water 50 ml IV ASDIRECTED PRN Glucagon,Human Recombinant [GlucaGen] 1 mg IM ASDIRECTED PRN 01/11/21 18:00 Insulin Lispro [HumaLOG] See Protocol SUBCUT TIDMEALS 01/11/21 18:20 Morphine 1 mg IVPUSH Q6H PRN 01/11/21 20:00 Insulin Glarg,Human.Rec.Analog [LantUS] 12 unit SUBCUT BEDTIME atorvaSTATin [Lipitor] 10 mg PO BEDTIME 01/12/21 Breakfast Full Liquid Diet [DIET] 01/12/21 12:00 Aspirin [Halfprin] 81 mg PO DAILY@1200 01/12/21 14:00 CBC WITH AUTO DIFF [HEME] Routine 01/13/21 05:11 BASIC METABOLIC PANEL,BMP [CHEM] Routine CBC WITH AUTO DIFF [HEME] Routine - Assessment Assessment:: 80 yo female admitted with diverticulitis and SKYE after presenting to the ER for evaluation of multiple near syncopal events. She is feeling much better today. Creatinine is downtrending; hemoglobin is also down though by 2 grams. - Plan Plan:: #1 Diverticulitis - Patient is feeling much better today. WBC back to normal. - Will continue ceftriaxone and metronidazole today. If she continues to tolerate PO without any issues, will plan to switch to PO antibiotics later today. - Full liquid diet through lunch, can advance later if lunch goes ok. - Zofran PRN nausea and morphine PRN pain. #2 Anemia - Last hemoglobin ~1 year ago was normal. - Will check a stool for occult blood and do iron studies and vitamin studies with labs in the am. - Some is likely from hemodilution but that is a significant drop for dilution to be the only contributor. #3 SKYE - Likely prerenal related to dehydration. - Creatinine downtrending. - Will slow fluids to 50 cc/hr. - Recheck labs in the am. #4 Near syncope #5 Postural hypotension #6 Hypertension - Near syncope felt to be secondary to dehydration. - Blood pressures improved today. - Troponins trended stable. - Complete 48 hours of Telemetry. - Hold home antihypertensives. - IV fluids as above. #7 Type 2 DM - Hold metformin. - Continue lantus. - QID glucoses with low dose SSI. #8 Hyperlipidemia #9 GERD #10 Osteoporosis - Continue home medications except prolia, which is held. Patient will remain on acute today - anticipate possible d/c tomorrow if her assisted living is able to take her back on Thursday, will otherwise likely be Thursday. See detailed plans as above. Due to drop in hemoglobin overnight, will still hold pharmacologic VTE prophylaxis. Will do SCD's and see if she can get up and moving today. If she is able to get out of bed without significant lightheadedness, will also plan to remove her catheter today. Code status is DNR/DNI - discussed on admission.
[2021-01-12] MEDS: Aspirin 81 MG Tab.EC PO SCH (11:40)
[2021-01-12] MEDS: cefTRIAXone 2 GM Vial IVPUSH SCH (15:19)
[2021-01-12] MEDS: atorvaSTATin 10 MG Tab PO SCH (19:51)
[2021-01-12] MEDS: Insulin Glarg,Human.Rec.Analog 100 Unit/ML SUBCUT SCH (19:53)
[2021-01-13] MEDS: Sodium Chloride 0.9% 1,000 ML IV SCH (01:43)
[2021-01-13] MEDS: metroNIDAZOLE/Normal Saline 500 MG in Premix Bag 1 BAG IV SCH ×2 (05:35→14:24)
[2021-01-13] MEDS: Insulin Lispro 100 Units/ML 3 ML Vial SUBCUT SCH ×3 (07:30→17:42)
[2021-01-13] MEDS: Sodium Chloride 0.9% 10 ML Syringe FLUSH PRN ×2 (07:30→19:57)
[2021-01-13] MEDS: Ondansetron 4 MG/2 ML SDV IVPUSH PRN (07:30)
[2021-01-13 07:47] LABS: ANION GAP 9.8 mmol/L (5-15)
--- NOTE | 2021-01-13 11:16 | PCM.PN ---
- General Info Date of Service: 01/13/21 Subjective Update: 80 yo female hospital day #3 admitted with diverticulitis and multiple near syncopal episodes. Did not sleep as well last night due to itching from the telemetry leads. She was also not able to walk yesterday due to weakness/unsteadiness. She did not feel as lightheaded. She was able to eat supper and breakfast without any issues. She denies any abdominal pain, nausea, or vomiting. Has not had any other bowel movements since the first night of admission. - Review of Systems General: Reports: No Symptoms HEENT: Reports: No Symptoms Pulmonary: Reports: No Symptoms Cardiovascular: Reports: No Symptoms Gastrointestinal: Reports: No Symptoms Genitourinary: Reports: No Symptoms Skin: Reports: No Symptoms - Patient Data Vitals - Most Recent: Last Vital Signs Temp 36.8 C 01/13/21 10:00 Pulse 75 01/13/21 10:00 Resp 17 01/13/21 10:00 BP 151/52 H 01/13/21 10:00 Pulse Ox 94 L 01/13/21 10:00 Orthostatic Blood Pressure [ 118/64 Standing] Orthostatic Blood Pressure [ 137/48 Sitting] Orthostatic Blood Pressure [ 133/44 Supine] Weight - Most Recent: 50.405 kg I&O - Last 24 Hours: Intake & Output 01/12/21 01/13/21 01/13/21 22:59 06:59 14:59 Intake Total 820 805 120 Output Total 1200 1300 Balance -380 -495 120 Lab Results Last 24 Hours: Laboratory Results - last 24 hr 01/12/21 01/12/21 01/12/21 Range/Units 08:30 11:38 14:37 WBC 9.6 (4.0-10.0) x10^3/uL RBC 3.14 L (4.00-5.50) x10^6/uL Hgb 9.0 L (12.0-16.0) g/dL Hct 27.5 L (33.0-47.0) % MCV 87.6 (78.0-93.0) fL MCH 28.7 (26.0-32.0) pg MCHC 32.7 (32.0-36.0) g/dL RDW Coeff of Leslie 13.3 (10.0-15.0) % Plt Count 344 (130-400) x10^3/uL Neut % (Auto) 58.9 (50.0-80.0) % Lymph % (Auto) 25.2 (25.0-50.0) % [place] % (Auto) 10.5 (2.0-11.0) % Eos % (Auto) 4.9 H (0.0-4.0) % Baso % (Auto) 0.5 (0.2-1.2) % Sodium (136-145) mmol/L Potassium (3.5-5.1) mmol/L Chloride (98-107) mmol/L Carbon Dioxide (21-32) mmol/L Anion Gap (5-15) mmol/L BUN (7-18) mg/dL Creatinine (0.55-1.02) mg/dL Est Cr Clr Drug Dosing mL/min Estimated GFR (MDRD) Glucose (70-99) mg/dL POC Glucose 151 H (70-99) mg/dL Calcium (8.5-10.1) mg/dL Ferritin 151 (8-252) ng/mL 01/12/21 01/12/21 01/13/21 Range/Units 16:48 19:47 05:34 WBC (4.0-10.0) x10^3/uL RBC (4.00-5.50) x10^6/uL Hgb (12.0-16.0) g/dL Hct (33.0-47.0) % MCV (78.0-93.0) fL MCH (26.0-32.0) pg MCHC (32.0-36.0) g/dL RDW Coeff of Leslie (10.0-15.0) % Plt Count (130-400) x10^3/uL Neut % (Auto) (50.0-80.0) % Lymph % (Auto) (25.0-50.0) % Nicol[place] % (Auto) (2.0-11.0) % Eos % (Auto) (0.0-4.0) % Baso % (Auto) (0.2-1.2) % Sodium (136-145) mmol/L Potassium (3.5-5.1) mmol/L Chloride (98-107) mmol/L Carbon Dioxide (21-32) mmol/L Anion Gap (5-15) mmol/L BUN (7-18) mg/dL Creatinine (0.55-1.02) mg/dL Est Cr Clr Drug Dosing mL/min Estimated GFR (MDRD) Glucose (70-99) mg/dL POC Glucose 121 H 211 H 74 (70-99) mg/dL Calcium (8.5-10.1) mg/dL Ferritin (8-252) ng/mL 01/13/21 01/13/21 Range/Units 07:15 07:15 WBC 8.9 (4.0-10.0) x10^3/uL RBC 3.41 L (4.00-5.50) x10^6/uL Hgb 9.6 L (12.0-16.0) g/dL Hct 29.7 L (33.0-47.0) % MCV 87.1 (78.0-93.0) fL MCH 28.2 (26.0-32.0) pg MCHC 32.3 (32.0-36.0) g/dL RDW Coeff of Leslie 13.4 (10.0-15.0) % Plt Count 376 (130-400) x10^3/uL Neut % (Auto) 51.5 (50.0-80.0) % Lymph % (Auto) 26.9 (25.0-50.0) % [place] % (Auto) 14.4 H (2.0-11.0) % Eos % (Auto) 6.6 H (0.0-4.0) % Baso % (Auto) 0.6 (0.2-1.2) % Sodium 141 (136-145) mmol/L Potassium 3.8 (3.5-5.1) mmol/L Chloride 110 H (98-107) mmol/L Carbon Dioxide 25 (21-32) mmol/L Anion Gap 9.8 (5-15) mmol/L BUN 13 (7-18) mg/dL Creatinine 0.9 (0.55-1.02) mg/dL Est Cr Clr Drug Dosing 34.62 mL/min Estimated GFR (MDRD) 60 Glucose 86 (70-99) mg/dL POC Glucose (70-99) mg/dL Calcium 7.9 L (8.5-10.1) mg/dL Ferritin (8-252) ng/mL Med Orders - Current: Current Medications Acetaminophen (Acetaminophen 500 Mg Tab) 1,000 mg PO Q6H PRN PRN Reason: Pain Aspirin (Aspirin 81 Mg Tab.Ec) 81 mg PO DAILY@1200 [facility] Last Admin: 01/12/21 11:40 Dose: 81 mg Documented by: Atorvastatin Calcium (Atorvastatin 10 Mg Tab) 10 mg PO BEDTIME [facility] Last Admin: 01/12/21 19:51 Dose: 10 mg Documented by: Ceftriaxone Sodium (Ceftriaxone 2 Gm Vial) 2 gm IVPUSH Q24H [facility] Last Admin: 01/12/21 15:19 Dose: 2 gm Documented by: Dextrose/Water (50% Dextrose In Water 50 Ml Syringe) 50 ml IV ASDIRECTED PRN PRN Reason: Hypoglycemia Glucagon (Glucagon,Human Recombinant 1 Mg Vial) 1 mg IM ASDIRECTED PRN PRN Reason: Hypoglycemia Metronidazole 500 mg/ Premix 100 mls @ 100 mls/hr IV Q8H [facility] Last Admin: 01/13/21 05:35 Dose: 100 mls/hr Documented by: Sodium Chloride (Normal Saline) 1,000 mls @ 50 mls/hr IV ASDIRECTED [facility] Last Admin: 01/13/21 01:43 Dose: 100 mls/hr Documented by: Insulin Glargine (Insulin Glarg,Human.Rec.Analog 100 Unit/Ml) 12 unit SUBCUT BEDTIME [facility] Last Admin: 01/12/21 19:53 Dose: 12 units Documented by: Insulin Human Lispro (Insulin Lispro 100 Units/Ml 3 Ml Vial) 0 unit SUBCUT TIDMEALS [facility]; Protocol Last Admin: 01/13/21 07:30 Dose: Not Given Documented by: Morphine Sulfate (Morphine 2 Mg/Ml Syringe) 1 mg IVPUSH Q6H PRN PRN Reason: Pain Last Admin: 01/11/21 19:19 Dose: 1 mg Documented by: Ondansetron HCl (Ondansetron 4 Mg/2 Ml Sdv) 4 mg IVPUSH Q8H PRN PRN Reason: Nausea Last Admin: 01/13/21 07:30 Dose: 4 mg Documented by: Sodium Chloride (Sodium Chloride 0.9% 10 Ml Syringe) 10 ml FLUSH ASDIRECTED PRN PRN Reason: Keep Vein Open Last Admin: 01/13/21 07:30 Dose: 10 ml Documented by: Discontinued Medications Sodium Chloride (Normal Saline) 1,000 mls @ 1,000 mls/hr IV ASDIRECTED [facility] Last Admin: 01/11/21 12:00 Dose: 1,000 mls/hr Documented by: Ciprofloxacin/Dextrose 400 mg/ (Premix) 200 mls @ 200 mls/hr IV Q12H [facility] Last Admin: 01/11/21 14:35 Dose: Not Given Documented by: Iopamidol (Iopamidol 612 Mg/Ml 100 Ml Bottle) 100 ml IVPUSH ONETIME ONE Stop: 01/11/21 12:16 Last Admin: 01/11/21 12:56 Dose: 100 ml Documented by: - Exam General: Alert, Oriented, Cooperative, No Acute Distress HEENT: Mucous Membr. Moist/[place] Neck: Supple, Trachea Midline, No Thyromegaly. No: Lymphadenopathy Lungs: Clear to Auscultation, Normal Respiratory Effort Cardiovascular: Regular Rate, Regular Rhythm, No Murmurs GI/Abdominal Exam: Normal Bowel Sounds, Soft, Non-Tender, No Organomegaly, No Distention, No Mass Extremities: Non-Tender, No Pedal Edema, Normal Capillary Refill Peripheral Pulses: 2+: Radial (L), Radial (R) Skin: Warm, Dry, Intact - Patient Data Lab Results Last 24 hrs: Laboratory Results - last 24 hr 01/12/21 01/12/21 01/12/21 Range/Units 08:30 11:38 14:37 WBC 9.6 (4.0-10.0) x10^3/uL RBC 3.14 L (4.00-5.50) x10^6/uL Hgb 9.0 L (12.0-16.0) g/dL Hct 27.5 L (33.0-47.0) % MCV 87.6 (78.0-93.0) fL MCH 28.7 (26.0-32.0) pg MCHC 32.7 (32.0-36.0) g/dL RDW Coeff of Leslie 13.3 (10.0-15.0) % Plt Count 344 (130-400) x10^3/uL Neut % (Auto) 58.9 (50.0-80.0) % Lymph % (Auto) 25.2 (25.0-50.0) % Nicol[place] % (Auto) 10.5 (2.0-11.0) % Eos % (Auto) 4.9 H (0.0-4.0) % Baso % (Auto) 0.5 (0.2-1.2) % Sodium (136-145) mmol/L Potassium (3.5-5.1) mmol/L Chloride (98-107) mmol/L Carbon Dioxide (21-32) mmol/L Anion Gap (5-15) mmol/L BUN (7-18) mg/dL Creatinine (0.55-1.02) mg/dL Est Cr Clr Drug Dosing mL/min Estimated GFR (MDRD) Glucose (70-99) mg/dL POC Glucose 151 H (70-99) mg/dL Calcium (8.5-10.1) mg/dL Ferritin 151 (8-252) ng/mL 01/12/21 01/12/21 01/13/21 Range/Units 16:48 19:47 05:34 WBC (4.0-10.0) x10^3/uL RBC (4.00-5.50) x10^6/uL Hgb (12.0-16.0) g/dL Hct (33.0-47.0) % MCV (78.0-93.0) fL MCH (26.0-32.0) pg MCHC (32.0-36.0) g/dL RDW Coeff of Leslie (10.0-15.0) % Plt Count (130-400) x10^3/uL Neut % (Auto) (50.0-80.0) % Lymph % (Auto) (25.0-50.0) % [place] % (Auto) (2.0-11.0) % Eos % (Auto) (0.0-4.0) % Baso % (Auto) (0.2-1.2) % Sodium (136-145) mmol/L Potassium (3.5-5.1) mmol/L Chloride (98-107) mmol/L Carbon Dioxide (21-32) mmol/L Anion Gap (5-15) mmol/L BUN (7-18) mg/dL Creatinine (0.55-1.02) mg/dL Est Cr Clr Drug Dosing mL/min Estimated GFR (MDRD) Glucose (70-99) mg/dL POC Glucose 121 H 211 H 74 (70-99) mg/dL Calcium (8.5-10.1) mg/dL Ferritin (8-252) ng/mL 01/13/21 01/13/21 Range/Units 07:15 07:15 WBC 8.9 (4.0-10.0) x10^3/uL RBC 3.41 L (4.00-5.50) x10^6/uL Hgb 9.6 L (12.0-16.0) g/dL Hct 29.7 L (33.0-47.0) % MCV 87.1 (78.0-93.0) fL MCH 28.2 (26.0-32.0) pg MCHC 32.3 (32.0-36.0) g/dL RDW Coeff of Leslie 13.4 (10.0-15.0) % Plt Count 376 (130-400) x10^3/uL Neut % (Auto) 51.5 (50.0-80.0) % Lymph % (Auto) 26.9 (25.0-50.0) % Nicol[place] % (Auto) 14.4 H (2.0-11.0) % Eos % (Auto) 6.6 H (0.0-4.0) % Baso % (Auto) 0.6 (0.2-1.2) % Sodium 141 (136-145) mmol/L Potassium 3.8 (3.5-5.1) mmol/L Chloride 110 H (98-107) mmol/L Carbon Dioxide 25 (21-32) mmol/L Anion Gap 9.8 (5-15) mmol/L BUN 13 (7-18) mg/dL Creatinine 0.9 (0.55-1.02) mg/dL Est Cr Clr Drug Dosing 34.62 mL/min Estimated GFR (MDRD) 60 Glucose 86 (70-99) mg/dL POC Glucose (70-99) mg/dL Calcium 7.9 L (8.5-10.1) mg/dL Ferritin (8-252) ng/mL Result Diagrams: 01/13/21 07:15 01/13/21 07:15 Sepsis Event Note - Evaluation Sepsis Screening Result: No Definite Risk - Focused Exam Vital Signs: Vital Signs Temp Pulse Resp BP Pulse Ox 01/13/21 10:00 36.8 C 75 17 151/52 H 94 L 01/13/21 06:00 36.7 C 75 16 124/54 L 92 L 01/13/21 02:00 36.7 C 72 16 119/38 L 94 L - Problem List & Annotations (1) Diverticulitis SNOMED Code(s): 696475408 Code(s): K57.92 - DVTRCLI OF INTEST, PART UNSP, W/O PERF OR ABSCESS W/O BLEED Status: Acute Current Visit: Yes (2) Anemia SNOMED Code(s): 298979123 Code(s): D64.9 - ANEMIA, UNSPECIFIED Status: Acute Current Visit: Yes Qualifiers: Anemia type: unspecified type Qualified Code(s): D64.9 - Anemia, uns pecified (3) Acute kidney failure SNOMED Code(s): 51854390 Code(s): N17.9 - ACUTE KIDNEY FAILURE, UNSPECIFIED Status: Acute Current Visit: Yes Qualifiers: Acute renal failure type: unspecified Qualified Code(s): N17.9 - Acute kidney failure, unspecified (4) Near syncope SNOMED Code(s): 924469920 Code(s): R55 - SYNCOPE AND COLLAPSE Status: Acute Current Visit: Yes (5) Postural hypotension SNOMED Code(s): 24032003 Code(s): I95.1 - ORTHOSTATIC HYPOTENSION Status: Acute Current Visit: Yes (6) Hypertension SNOMED Code(s): 15768332 Code(s): I10 - ESSENTIAL (PRIMARY) HYPERTENSION Status: Chronic Current Visit: Yes Qualifiers: Hypertension type: essential hypertension Qualified Code(s): I10 - Essential (primary) hypertension (7) Type 2 diabetes mellitus SNOMED Code(s): 13375262 Code(s): E11.9 - TYPE 2 DIABETES MELLITUS WITHOUT COMPLICATIONS Status: Chronic Current Visit: Yes Qualifiers: Diabetes mellitus central office frame wirer insulin use: with central office frame wirer use Diabetes mellitus complication status: without complication Qualified Code(s): E11.9 - Type 2 diabetes mellitus without complications; Z79.4 - customer care voice consultant (current) use of insulin (8) Hyperlipidemia SNOMED Code(s): 50905511 Code(s): E78.5 - HYPERLIPIDEMIA, UNSPECIFIED Status: Chronic Current Visit: Yes Qualifiers: Hyperlipidemia type: unspecified Qualified Code(s): E78.5 - Hyperlipidemia, unspecified (9) GERD (gastroesophageal reflux disease) SNOMED Code(s): 569839866 Code(s): K21.9 - GASTRO-ESOPHAGEAL REFLUX DISEASE WITHOUT ESOPHAGITIS Status: Chronic Current Visit: Yes Qualifiers: Esophagitis presence: esophagitis presence not specified Qualified Code(s): K21.9 - Gastro-esophageal reflux disease without esophagitis (10) Osteoporosis SNOMED Code(s): 02848313 Code(s): M81.0 - AGE-RELATED OSTEOPOROSIS W/O CURRENT PATHOLOGICAL FRACTURE Status: Chronic Current Visit: Yes Qualifiers: Osteoporosis type: age-related Presence of current pathological fracture: without current pathological fracture Qualified Code(s): M81.0 - Age-related osteoporosis without current pathological fracture - Problem List Review Problem List Initiated/Reviewed/Updated: Yes - My Orders Last 24 Hours: My Active Orders 01/12/21 10:16 Fecal Occult Bld Diag Imm [RC] ASDIRECTED 01/12/21 10:27 Antiembolic Devices [RC] 08,20 Sequential Compression Device [OM.PC] Routine 01/12/21 12:00 Aspirin [Halfprin] 81 mg PO DAILY@1200 01/12/21 Dinner Advance Diet Instructions [DIET] 01/13/21 07:15 FOLATE [REF] Routine IRON & TIBC [REF] Routine VITAMIN B12 [REF] Routine - Assessment Assessment:: 80 yo female admitted with diverticulitis and SKYE after presenting to the ER for evaluation of multiple near syncopal events. Symptomatically better except that she is still weak. Labs stable/improved today. - Plan Plan:: #1 Diverticulitis - Patient is feeling much better today. WBC remains normal. - After afternoon doses of ceftriaxone and metronidazole, will switch to augmentin to complete a 5 day course. - ADAT to regular. - Zofran PRN nausea and morphine PRN pain. #2 Anemia - Hemoglobins now stable. - Ferritin is normal, which makes this most likely an anemia of chronic disease. Iron, TIBC, vitamin B12, and folate pending. - Will still check stool for occult blood if she has a BM during admission. #3 SKYE - Creatinine back to normal today. - Will continue her fluids at 50 cc/hr until this bag is done and then d/c. #4 Near syncope #5 Postural hypotension #6 Hypertension - Near syncope felt to be secondary to dehydration. - Blood pressures stable. - D/C Telemetry. - Hold home antihypertensives. #7 Type 2 DM - Hold metformin. - Continue lantus. - QID glucoses with low dose SSI. #8 Hyperlipidemia #9 GERD #10 Osteoporosis - Continue home medications except prolia, which is held. Patient will remain on acute today as she has not been able to get out of bed still. Will have PT/OT evaluate her tomorrow with tentative plans for swing bed if they feel she will benefit. See detailed plans as above. Will start lovenox for VTE prophylaxis now that her hemoglobin is stable. Will d/c her urinary catheter. Code status is DNR/DNI - discussed on admission.
[2021-01-13] MEDS: Enoxaparin 40 MG/0.4 ML Syringe SUBCUT SCH (11:41)
[2021-01-13] MEDS: Aspirin 81 MG Tab.EC PO SCH (11:42)
[2021-01-13] MEDS: cefTRIAXone 2 GM Vial IVPUSH SCH (14:25)
[2021-01-13] MEDS ORDERED: cefTRIAXone 2 GM Vial IVPUSH ONE (14:35)
[2021-01-13] MEDS: Amoxicillin/Clavulanate K 875-125 MG Tab PO SCH (19:57)
[2021-01-13] MEDS: atorvaSTATin 10 MG Tab PO SCH (19:57)
[2021-01-13] MEDS: Insulin Glarg,Human.Rec.Analog 100 Unit/ML SUBCUT SCH (19:58)
[2021-01-14 07:04] LABS: ANION GAP 9.9 mmol/L (5-15)
[2021-01-14] MEDS: Insulin Lispro 100 Units/ML 3 ML Vial SUBCUT SCH ×2 (07:20→11:24)
[2021-01-14] MEDS: Amoxicillin/Clavulanate K 875-125 MG Tab PO SCH (07:20)
[2021-01-14] MEDS ORDERED: Lisinopril 5 MG Tab PO SCH (08:00)
[2021-01-14 11:18] VITALS: BP 183/67; PULSE 73
[2021-01-14] MEDS: Aspirin 81 MG Tab.EC PO SCH (11:24)
[2021-01-14] MEDS: Enoxaparin 40 MG/0.4 ML Syringe SUBCUT SCH (11:24)
--- NOTE | 2021-01-14 11:49 | PCM.DCSUM1 ---
Discharge Summary - Hospital Course Brief History: Ms. Talley is an 80 yo female who was admitted for diverticulitis and SKYE after presenting to the ER for evaluation of multiple near syncopal events. - Discharge Data Discharge Date: 01/14/21 Discharge Disposition: DC/Tfer W/I Hosp To Swing 61 Condition: Good - Referral to Home Health Primary Care Physician: Esme Acosta MD - Discharge Diagnosis/Problem(s) (1) Diverticulitis SNOMED Code(s): 746461309 ICD Code: K57.92 - DVTRCLI OF INTEST, PART UNSP, W/O PERF OR ABSCESS W/O BLEED Status: Acute Current Visit: Yes (2) Anemia SNOMED Code(s): 785181122 ICD Code: D64.9 - ANEMIA, UNSPECIFIED Status: Acute Current Visit: Yes Qualifiers: Anemia type: unspecified type Qualified Code(s): D64.9 - Anemia, unspecified (3) Acute kidney failure SNOMED Code(s): 80311818 ICD Code: N17.9 - ACUTE KIDNEY FAILURE, UNSPECIFIED Status: Acute Current Visit: Yes Qualifiers: Acute renal failure type: unspecified Qualified Code(s): N17.9 - Acute kidney failure, unspecified (4) Near syncope SNOMED Code(s): 243792928 ICD Code: R55 - SYNCOPE AND COLLAPSE Status: Acute Current Visit: Yes (5) Postural hypotension SNOMED Code(s): 10291536 ICD Code: I95.1 - ORTHOSTATIC HYPOTENSION Status: Acute Current Visit: Yes (6) Hypertension SNOMED Code(s): 80518983 ICD Code: I10 - ESSENTIAL (PRIMARY) HYPERTENSION Status: Chronic Current Visit: Yes Qualifiers: Hypertension type: essential hypertension Qualified Code(s): I10 - Essential (primary) hypertension (7) Type 2 diabetes mellitus SNOMED Code(s): 93635405 ICD Code: E11.9 - TYPE 2 DIABETES MELLITUS WITHOUT COMPLICATIONS Status: Chronic Current Visit: Yes Qualifiers: Diabetes mellitus care home insulin use: with buttermaker continuous churn use Diabetes mellitus complication status: without complication Qualified Code(s): E11.9 - Type 2 diabetes mellitus without complications; Z79.4 - jail (current) use of insulin (8) Hyperlipidemia SNOMED Code(s): 41862620 ICD Code: E78.5 - HYPERLIPIDEMIA, UNSPECIFIED Status: Chronic Current Visit: Yes Qualifiers: Hyperlipidemia type: unspecified Qualified Code(s): E78.5 - Hyperlipidemia, unspecified (9) GERD (gastroesophageal reflux disease) SNOMED Code(s): 353181942 ICD Code: K21.9 - GASTRO-ESOPHAGEAL REFLUX DISEASE WITHOUT ESOPHAGITIS Status: Chronic Current Visit: Yes Qualifiers: Esophagitis presence: esophagitis presence not specified Qualified Code(s): K21.9 - Gastro-esophageal reflux disease without esophagitis (10) Osteoporosis SNOMED Code(s): 72483504 ICD Code: M81.0 - AGE-RELATED OSTEOPOROSIS W/O CURRENT PATHOLOGICAL FRACTURE Status: Chronic Current Visit: Yes Qualifiers: Osteoporosis type: age-related Presence of current pathological fracture: without current pathological fracture Qualified Code(s): M81.0 - Age-related osteoporosis without current pathological fracture - Patient Summary/Data Operative Procedure(s) Performed: none Complications: none Consults: Consultations 01/13/21 14:20 Consult to Physical Therapy [PT Evaluation and Treatment] [CONS] Routine Labs Pending at D/C: B12, folate, iron and TIBC Recommended Follow-up Testing/Procedures: none Planned Operative Procedure(s) after DC: none Hospital Course: The patient was found to have an early mild diverticulitis in the ER as well as an SKYE presumed to be from dehydration. She was admitted and given IV fluids and IV antibiotics. Her diet was started on full liquids and then advanced as she tolerated. Symptoms progressively improved and she was switched to oral antibiotics yesterday. Her IV fluids were also discontinued and she has been able to eat and drink well. Her hospitalization was complicated by acute (presumed on chronic) anemia with an initial drop in hemoglobin then stabilizing. Her ferritin was normal; iron, TIBC, B12, and folate all pending at the time of discharge. Her SKYE improved with IV fluids and creatinine was back to normal as of yesterday. Her home antihypertensives were held in light of hypotension and SKYE but lisinopril 5 mg was resumed today given increased BP's in the past 24 hours. Physical therapy evaluated her this morning and do feel she would benefit from swing bed prior to returning to assisted living. Her hospitalization was otherwise uncomplicated and she will be transitioned to swing bed today. - Discharge Plan *PRESCRIPTION DRUG MONITORING PROGRAM REVIEWED*: No *COPY OF PRESCRIPTION DRUG MONITORING REPORT IN PATIENT JIMMY: No Home Medications: Home Meds Aspirin [Halfprin] 81 mg PO DAILY@1200 #365 tab.ec 03/22/14 [Rx] Insulin Glarg,Human.Rec.Analog [LantUS Solostar] 14 units SQ BEDTIME 06/22/17 [History] Acetaminophen [Acetaminophen Extra Strength] 1,000 mg PO Q6H PRN 01/11/21 [History] Denosumab [Prolia] 60 mg SQ Q180D 01/11/21 [History] Glucagon,Human Recombinant [Glucagon Emergency Kit] 1 mg IV ASDIRECTED PRN 01/11/21 [History] Hydrochlorothiazide/Lisinopril [Lisinopril-HCTZ 20-12.5 MG] 2 tab PO DAILY 01/11/21 [History] Mirtazapine 7.5 mg PO BEDTIME 01/11/21 [History] Pantoprazole Sodium [Protonix] 40 mg PO BIDAC 01/11/21 [History] atorvaSTATin [Lipitor] 10 mg PO BEDTIME 01/11/21 [History] metFORMIN HCl [Metformin HCl] 1,000 mg PO BIDMEALS 01/11/21 [History] Patient Handouts: Amoxicillin; Clavulanic Acid Tablets Referrals: Esme Acosta MD [Primary Care Provider] - - Discharge Summary/Plan Comment DC Time >30 min.: No - General Info Date of Service: 01/14/21 Subjective Update: Patient is feeling better this morning. Was able to walk down the hallway with PT and her walker with some weakness but no lightheadedness. Appetite has been back to normal and she is eating/drinking well. Had 3 BM's in the past 24 hours; no constipation or diarrhea. No abdominal pain or vomiting. No other concerns today. - Review of Systems General: Reports: No Symptoms HEENT: Reports: No Symptoms Pulmonary: Reports: No Symptoms Cardiovascular: Reports: No Symptoms Gastrointestinal: Reports: No Symptoms Genitourinary: Reports: No Symptoms Musculoskeletal: Reports: No Symptoms Skin: Reports: No Symptoms Neurological: Reports: No Symptoms Psychiatric: Reports: No Symptoms - Patient Data Vitals - Most Recent: Last Vital Signs Temp 37.4 C 01/14/21 10:00 Pulse 73 01/14/21 10:00 Resp 17 01/14/21 06:00 BP 183/67 H 01/14/21 10:00 Pulse Ox 97 01/14/21 10:00 Orthostatic Blood Pressure [ 175/69 Standing] Orthostatic Blood Pressure [ 175/72 Sitting] Orthostatic Blood Pressure [ 164/54 Supine] Weight - Most Recent: 50.405 kg I&O - Last 24 hours: Intake & Output 01/13/21 01/14/21 01/14/21 22:59 06:59 14:59 Intake Total 890 150 180 Balance 890 150 180 Lab Results - Last 24 hrs: Laboratory Results - last 24 hr 01/13/21 01/13/21 01/13/21 Range/Units 11:32 17:37 19:53 WBC (4.0-10.0) x10^3/uL RBC (4.00-5.50) x10^6/uL Hgb (12.0-16.0) g/dL Hct (33.0-47.0) % MCV (78.0-93.0) fL MCH (26.0-32.0) pg MCHC (32.0-36.0) g/dL RDW Coeff of Leslie (10.0-15.0) % Plt Count (130-400) x10^3/uL Neut % (Auto) (50.0-80.0) % Lymph % (Auto) (25.0-50.0) % Smyth % (Auto) (2.0-11.0) % Eos % (Auto) (0.0-4.0) % Baso % (Auto) (0.2-1.2) % Sodium (136-145) mmol/L Potassium (3.5-5.1) mmol/L Chloride (98-107) mmol/L Carbon Dioxide (21-32) mmol/L Anion Gap (5-15) mmol/L BUN (7-18) mg/dL Creatinine (0.55-1.02) mg/dL Est Cr Clr Drug Dosing mL/min Estimated GFR (MDRD) Glucose (70-99) mg/dL POC Glucose 148 H 96 197 H (70-99) mg/dL Calcium (8.5-10.1) mg/dL 01/14/21 01/14/21 01/14/21 Range/Units 06:10 06:12 06:12 WBC 9.2 (4.0-10.0) x10^3/uL RBC 3.56 L (4.00-5.50) x10^6/uL Hgb 9.9 L (12.0-16.0) g/dL Hct 30.5 L (33.0-47.0) % MCV 85.7 (78.0-93.0) fL MCH 27.8 (26.0-32.0) pg MCHC 32.5 (32.0-36.0) g/dL RDW Coeff of Leslie 13.3 (10.0-15.0) % Plt Count 383 (130-400) x10^3/uL Neut % (Auto) 51.7 (50.0-80.0) % Lymph % (Auto) 25.4 (25.0-50.0) % Smyth % (Auto) 14.7 H (2.0-11.0) % Eos % (Auto) 7.7 H (0.0-4.0) % Baso % (Auto) 0.5 (0.2-1.2) % Sodium 142 (136-145) mmol/L Potassium 3.9 (3.5-5.1) mmol/L Chloride 108 H (98-107) mmol/L Carbon Dioxide 28 (21-32) mmol/L Anion Gap 9.9 (5-15) mmol/L BUN 12 (7-18) mg/dL Creatinine 0.9 (0.55-1.02) mg/dL Est Cr Clr Drug Dosing 34.62 mL/min Estimated GFR (MDRD) 60 Glucose 85 (70-99) mg/dL POC Glucose 75 (70-99) mg/dL Calcium 8.6 (8.5-10.1) mg/dL 01/14/21 Range/Units 11:23 WBC (4.0-10.0) x10^3/uL RBC (4.00-5.50) x10^6/uL Hgb (12.0-16.0) g/dL Hct (33.0-47.0) % MCV (78.0-93.0) fL MCH (26.0-32.0) pg MCHC (32.0-36.0) g/dL RDW Coeff of Leslie (10.0-15.0) % Plt Count (130-400) x10^3/uL Neut % (Auto) (50.0-80.0) % Lymph % (Auto) (25.0-50.0) % Smyth % (Auto) (2.0-11.0) % Eos % (Auto) (0.0-4.0) % Baso % (Auto) (0.2-1.2) % Sodium (136-145) mmol/L Potassium (3.5-5.1) mmol/L Chloride (98-107) mmol/L Carbon Dioxide (21-32) mmol/L Anion Gap (5-15) mmol/L BUN (7-18) mg/dL Creatinine (0.55-1.02) mg/dL Est Cr Clr Drug Dosing mL/min Estimated GFR (MDRD) Glucose (70-99) mg/dL POC Glucose 223 H (70-99) mg/dL Calcium (8.5-10.1) mg/dL Med Orders - Current: Current Medications Acetaminophen (Acetaminophen 500 Mg Tab) 1,000 mg PO Q6H PRN PRN Reason: Pain Amoxicillin/Clavulanate Potassium (Amoxicillin/Clavulanate K 875-125 Mg Tab) 1 tab PO BID [facility] Stop: 01/15/21 20:01 Last Admin: 01/14/21 07:20 Dose: 1 tab Documented by: Aspirin (Aspirin 81 Mg Tab.Ec) 81 mg PO DAILY@1200 [facility] Last Admin: 01/14/21 11:24 Dose: 81 mg Documented by: Atorvastatin Calcium (Atorvastatin 10 Mg Tab) 10 mg PO BEDTIME [facility] Last Admin: 01/13/21 19:57 Dose: 10 mg Documented by: Dextrose/Water (50% Dextrose In Water 50 Ml Syringe) 50 ml IV ASDIRECTED PRN PRN Reason: Hypoglycemia Enoxaparin Sodium (Enoxaparin 40 Mg/0.4 Ml Syringe) 40 mg SUBCUT Q24H [facility] Last Admin: 01/14/21 11:24 Dose: 40 mg Documented by: Glucagon (Glucagon,Human Recombinant 1 Mg Vial) 1 mg IM ASDIRECTED PRN PRN Reason: Hypoglycemia Insulin Glargine (Insulin Glarg,Human.Rec.Analog 100 Unit/Ml) 12 unit SUBCUT BEDTIME [facility] Last Admin: 01/13/21 19:58 Dose: 12 units Documented by: Insulin Human Lispro (Insulin Lispro 100 Units/Ml 3 Ml Vial) 0 unit SUBCUT TIDMEALS [facility]; Protocol Last Admin: 01/14/21 11:24 Dose: 2 units Documented by: Lisinopril (Lisinopril 5 Mg Tab) 5 mg PO DAILY [facility] Last Admin: 01/14/21 09:22 Dose: 5 mg Documented by: Morphine Sulfate (Morphine 2 Mg/Ml Syringe) 1 mg IVPUSH Q6H PRN PRN Reason: Pain Last Admin: 01/11/21 19:19 Dose: 1 mg Documented by: Ondansetron HCl (Ondansetron 4 Mg/2 Ml Sdv) 4 mg IVPUSH Q8H PRN PRN Reason: Nausea Last Admin: 01/13/21 07:30 Dose: 4 mg Documented by: Sodium Chloride (Sodium Chloride 0.9% 10 Ml Syringe) 10 ml FLUSH ASDIRECTED PRN PRN Reason: Keep Vein Open Last Admin: 01/13/21 19:57 Dose: 10 ml Documented by: Discontinued Medications Ceftriaxone Sodium (Ceftriaxone 2 Gm Vial) 2 gm IVPUSH Q24H [facility] Last Admin: 01/13/21 14:25 Dose: 2 gm Documented by: Ceftriaxone Sodium (Ceftriaxone 2 Gm Vial) 2 gm IVPUSH ONETIME ONE Stop: 01/13/21 14:36 Last Admin: 01/13/21 14:46 Dose: 2 gm Documented by: Sodium Chloride (Normal Saline) 1,000 mls @ 1,000 mls/hr IV ASDIRECTED [facility] Last Admin: 01/11/21 12:00 Dose: 1,000 mls/hr Documented by: Ciprofloxacin/Dextrose 400 mg/ (Premix) 200 mls @ 200 mls/hr IV Q12H [facility] Last Admin: 01/11/21 14:35 Dose: Not Given Documented by: Metronidazole 500 mg/ Premix 100 mls @ 100 mls/hr IV Q8H [facility] Last Admin: 01/13/21 14:24 Dose: 100 mls/hr Documented by: Sodium Chloride (Normal Saline) 1,000 mls @ 50 mls/hr IV ASDIRECTED [facility] Last Admin: 01/13/21 01:43 Dose: 100 mls/hr Documented by: Iopamidol (Iopamidol 612 Mg/Ml 100 Ml Bottle) 100 ml IVPUSH ONETIME ONE Stop: 01/11/21 12:16 Last Admin: 01/11/21 12:56 Dose: 100 ml Documented by: - Exam General: Reports: Alert, Cooperative, No Acute Distress HEENT: Reports: Pupils Equal, Pupils Reactive, Mucous Membr. Moist/[place] Neck: Reports: Supple, Trachea Midline, No Thyromegaly. Denies: Lymphadenopathy Lungs: Reports: Clear to Auscultation, Normal Respiratory Effort Cardiovascular: Reports: Regular Rate, Regular Rhythm, No Murmurs GI/Abdominal Exam: Normal Bowel Sounds, Soft, Non-Tender, No Organomegaly, No Distention, No Mass Extremities: Non-Tender, No Pedal Edema, Normal Capillary Refill Skin: Reports: Warm, Dry, Intact Neurological: Reports: No New Focal Deficit
== END 2021-01-14 12:10 | disposition swing bed (61) | DRG 392 ==
LOC: VM.ED 10:14 → VM.MS 13:54
PROVIDERS: ADMIT Family Medicine; ATTEND Family Medicine
DX: K57.92 Diverticulitis of intestine, part unspecified, without perforation or abscess without bleeding (principal); N17.9 Acute kidney failure, unspecified; R55 Syncope and collapse; K57.90 Diverticulosis of intestine, part unspecified, without perforation or abscess without bleeding; D64.9 Anemia, unspecified; Z66 Do not resuscitate; I95.1 Orthostatic hypotension; I10 Essential (primary) hypertension; E11.9 Type 2 diabetes mellitus without complications; E78.5 Hyperlipidemia, unspecified; K21.9 Gastro-esophageal reflux disease without esophagitis; M81.0 Age-related osteoporosis without current pathological fracture; E86.0 Dehydration; H52.4 Presbyopia; H52.209 Unspecified astigmatism, unspecified eye; H52.10 Myopia, unspecified eye; Z79.4 Long term (current) use of insulin; Z79.82 Long term (current) use of aspirin; Z79.899 Other long term (current) drug therapy; Z88.1 Allergy status to other antibiotic agents; Z98.49 Cataract extraction status, unspecified eye; Z90.49 Acquired absence of other specified parts of digestive tract; Z87.891 Personal history of nicotine dependence; Z20.822 Contact with and (suspected) exposure to COVID-19
CPT/HCPCS: 36415; 51702; 71045; 74177; 80048; 80053; 81001; 82274; 82607; 82728; 82746; 82947; 83540; 83550; 83605; 84443; 84484; 85025; 85610; 86140; 93010; 97162-GP; 99284; 99285-25; A9270-GY; J0696; J1650; J1815-GY; J2270; J2405; J3490; J7030; Q9967; U0002

== ENCOUNTER 2021-01-14 11:55 | Inpatient (IN) | payer MEDICARE, OTHER ==
[2021-01-14] MEDS ORDERED: Acetaminophen 325 MG Tab PO PRN (13:01)
--- NOTE | 2021-01-14 13:05 | PCM.SN.2 ---
- Free Text/Narrative Note: Patient admitted to swing bed from acute. See d/c summary in acute chart for further details. Recheck labs on .
[2021-01-14] MEDS ORDERED: Glucagon,Human Recombinant 1 MG Vial IM PRN (14:06)
[2021-01-14] MEDS ORDERED: 50% Dextrose in Water 50 ML Syringe IV PRN (14:06)
[2021-01-14] MEDS: Pantoprazole 40 MG Tab.CR PO SCH (17:23)
[2021-01-14] MEDS: Amoxicillin/Clavulanate K 875-125 MG Tab PO SCH (17:23)
[2021-01-14] MEDS: Insulin Lispro 100 Units/ML 3 ML Vial SUBCUT SCH (18:13)
[2021-01-14] MEDS: atorvaSTATin 10 MG Tab PO SCH (19:47)
[2021-01-14] MEDS: Mirtazapine 15 MG Tab PO SCH (19:48)
[2021-01-14] MEDS: Insulin Glarg,Human.Rec.Analog 100 Unit/ML SUBCUT SCH (20:32)
[2021-01-15] MEDS: Pantoprazole 40 MG Tab.CR PO SCH ×2 (06:45→17:34)
[2021-01-15] MEDS: Lisinopril 5 MG Tab PO SCH (08:52)
[2021-01-15] MEDS: Amoxicillin/Clavulanate K 875-125 MG Tab PO SCH ×2 (08:52→17:34)
[2021-01-15] MEDS: Enoxaparin 30 MG/0.3 ML Syringe SUBCUT SCH (09:00)
[2021-01-15] MEDS: Insulin Lispro 100 Units/ML 3 ML Vial SUBCUT SCH ×3 (09:01→17:35)
[2021-01-15] MEDS: Aspirin 81 MG Tab.EC PO SCH (13:22)
[2021-01-15] MEDS: Insulin Glarg,Human.Rec.Analog 100 Unit/ML SUBCUT SCH (20:11)
[2021-01-15] MEDS: Mirtazapine 15 MG Tab PO SCH (20:12)
[2021-01-15] MEDS: atorvaSTATin 10 MG Tab PO SCH (20:12)
[2021-01-16] MEDS: Pantoprazole 40 MG Tab.CR PO SCH ×2 (06:43→17:29)
[2021-01-16] MEDS: Insulin Lispro 100 Units/ML 3 ML Vial SUBCUT SCH ×3 (07:51→17:30)
[2021-01-16] MEDS: Lisinopril 5 MG Tab PO SCH (07:52)
[2021-01-16] MEDS: Enoxaparin 30 MG/0.3 ML Syringe SUBCUT SCH (07:52)
[2021-01-16] MEDS: Aspirin 81 MG Tab.EC PO SCH (11:33)
[2021-01-16] MEDS ORDERED: Lisinopril 5 MG Tab PO ONE (18:29)
[2021-01-16] MEDS: Mirtazapine 15 MG Tab PO SCH (19:22)
[2021-01-16] MEDS: atorvaSTATin 10 MG Tab PO SCH (19:22)
[2021-01-16] MEDS: Insulin Glarg,Human.Rec.Analog 100 Unit/ML SUBCUT SCH (19:29)
[2021-01-17] MEDS: Pantoprazole 40 MG Tab.CR PO SCH ×2 (06:22→17:46)
[2021-01-17 07:01] LABS: ANION GAP 9.7 mmol/L (5-15)
[2021-01-17] MEDS: Enoxaparin 30 MG/0.3 ML Syringe SUBCUT SCH (08:58)
[2021-01-17] MEDS: Lisinopril 5 MG Tab PO SCH ×2 (08:58→08:59)
[2021-01-17] MEDS: Insulin Lispro 100 Units/ML 3 ML Vial SUBCUT SCH ×3 (08:58→17:12)
[2021-01-17] MEDS: Aspirin 81 MG Tab.EC PO SCH (11:28)
[2021-01-17] MEDS: Lidocaine 4% 1 each Patch TOP SCH (18:47)
[2021-01-17] MEDS: Mirtazapine 15 MG Tab PO SCH (19:37)
[2021-01-17] MEDS: atorvaSTATin 10 MG Tab PO SCH (19:37)
[2021-01-17] MEDS: Insulin Glarg,Human.Rec.Analog 100 Unit/ML SUBCUT SCH (19:39)
[2021-01-18] MEDS: Pantoprazole 40 MG Tab.CR PO SCH ×2 (06:21→16:48)
[2021-01-18] MEDS: Lidocaine 4% 1 each Patch TOP SCH (07:54)
[2021-01-18] MEDS: Enoxaparin 30 MG/0.3 ML Syringe SUBCUT SCH (07:55)
[2021-01-18] MEDS: Lisinopril 5 MG Tab PO SCH (07:55)
[2021-01-18] MEDS: Insulin Lispro 100 Units/ML 3 ML Vial SUBCUT SCH ×3 (07:55→18:03)
[2021-01-18] MEDS: Aspirin 81 MG Tab.EC PO SCH (11:46)
[2021-01-18] MEDS: Insulin Glarg,Human.Rec.Analog 100 Unit/ML SUBCUT SCH (19:38)
[2021-01-18] MEDS: atorvaSTATin 10 MG Tab PO SCH (19:39)
[2021-01-18] MEDS: Mirtazapine 15 MG Tab PO SCH (19:39)
[2021-01-19] MEDS: Pantoprazole 40 MG Tab.CR PO SCH ×2 (06:17→17:36)
[2021-01-19] MEDS: Lisinopril 5 MG Tab PO SCH (07:41)
[2021-01-19] MEDS: Enoxaparin 30 MG/0.3 ML Syringe SUBCUT SCH (07:42)
[2021-01-19] MEDS: Lidocaine 4% 1 each Patch TOP SCH (07:42)
[2021-01-19] MEDS: Insulin Lispro 100 Units/ML 3 ML Vial SUBCUT SCH ×3 (07:42→18:38)
[2021-01-19] MEDS: Aspirin 81 MG Tab.EC PO SCH (11:56)
[2021-01-19] MEDS: atorvaSTATin 10 MG Tab PO SCH (19:49)
[2021-01-19] MEDS: Mirtazapine 15 MG Tab PO SCH (19:49)
[2021-01-19] MEDS: Insulin Glarg,Human.Rec.Analog 100 Unit/ML SUBCUT SCH (19:52)
[2021-01-20] MEDS: Pantoprazole 40 MG Tab.CR PO SCH ×2 (06:08→17:02)
[2021-01-20] MEDS: Lisinopril 5 MG Tab PO SCH (08:04)
[2021-01-20] MEDS: Enoxaparin 30 MG/0.3 ML Syringe SUBCUT SCH (08:04)
[2021-01-20] MEDS: Insulin Lispro 100 Units/ML 3 ML Vial SUBCUT SCH ×3 (08:04→17:13)
[2021-01-20] MEDS: Lidocaine 4% 1 each Patch TOP SCH (08:04)
[2021-01-20] MEDS: Aspirin 81 MG Tab.EC PO SCH (12:27)
[2021-01-20] MEDS: atorvaSTATin 10 MG Tab PO SCH (19:36)
[2021-01-20] MEDS: Mirtazapine 15 MG Tab PO SCH (19:36)
[2021-01-20] MEDS: Insulin Glarg,Human.Rec.Analog 100 Unit/ML SUBCUT SCH (19:37)
[2021-01-21] MEDS: Pantoprazole 40 MG Tab.CR PO SCH ×2 (06:05→17:11)
[2021-01-21] MEDS: Insulin Lispro 100 Units/ML 3 ML Vial SUBCUT SCH (07:45)
[2021-01-21] MEDS: Lidocaine 4% 1 each Patch TOP SCH (07:45)
[2021-01-21] MEDS: Lisinopril 5 MG Tab PO SCH (07:46)
[2021-01-21] MEDS: Enoxaparin 30 MG/0.3 ML Syringe SUBCUT SCH (07:46)
[2021-01-21] MEDS: Aspirin 81 MG Tab.EC PO SCH (13:42)
[2021-01-21] MEDS: Hydrochlorothiazide 12.5 MG Cap PO SCH (13:42)
[2021-01-21] MEDS: Lisinopril 20 MG Tab PO SCH (13:43)
[2021-01-21] MEDS: metFORMIN 500 MG Tab PO SCH (17:11)
[2021-01-21] MEDS: atorvaSTATin 10 MG Tab PO SCH (19:36)
[2021-01-21] MEDS: Insulin Glarg,Human.Rec.Analog 100 Unit/ML SUBCUT SCH (19:36)
[2021-01-21] MEDS: Mirtazapine 15 MG Tab PO SCH (19:36)
[2021-01-22] MEDS: Pantoprazole 40 MG Tab.CR PO SCH ×2 (06:08→17:35)
[2021-01-22] MEDS: Enoxaparin 30 MG/0.3 ML Syringe SUBCUT SCH (07:56)
[2021-01-22] MEDS: Hydrochlorothiazide 12.5 MG Cap PO SCH (07:56)
[2021-01-22] MEDS: metFORMIN 500 MG Tab PO SCH ×2 (07:56→17:35)
[2021-01-22] MEDS: Lisinopril 20 MG Tab PO SCH (07:57)
[2021-01-22] MEDS: Aspirin 81 MG Tab.EC PO SCH (13:09)
[2021-01-22] MEDS: atorvaSTATin 10 MG Tab PO SCH (19:27)
[2021-01-22] MEDS: Mirtazapine 15 MG Tab PO SCH (19:27)
[2021-01-22] MEDS: Insulin Glarg,Human.Rec.Analog 100 Unit/ML SUBCUT SCH (19:28)
[2021-01-23] MEDS: Pantoprazole 40 MG Tab.CR PO SCH (06:32)
[2021-01-23] MEDS: Lisinopril 20 MG Tab PO SCH ×2 (06:55→07:03)
[2021-01-23] MEDS: Hydrochlorothiazide 12.5 MG Cap PO SCH ×2 (06:56→07:02)
--- NOTE | 2021-01-23 07:53 | PCM.DCSUM1 ---
Discharge Summary - Hospital Course Brief History: Ms. Talley is an 80 yo female who was admitted to swing bed following an acute hospitalization for dehydration, SKYE, and diverticulitis for further strengthening prior to returning to assisted living. - Discharge Data Discharge Date: 01/23/21 Discharge Disposition: Home, Self-Care 01 Condition: Good - Referral to Home Health Primary Care Physician: Esme Acosta MD - Patient Summary/Data Operative Procedure(s) Performed: none Complications: none Consults: Consultations 01/14/21 13:02 PT Evaluation and Treatment [CONS] Routine Labs Pending at D/C: none Recommended Follow-up Testing/Procedures: none Planned Operative Procedure(s) after DC: none Hospital Course: Patient was transitioned to swing bed. She worked with PT and progressed well. She is felt ready for d/c back to assisted living today. Her swing bed stay was complicated by hypertension for which her medications were adjusted. Her BP is still high today but she will be d/c'd home on her prior medication, which was controlling her blood pressure previously. No other complications to her swing bed stay. She will follow-up in clinic in 1 week. - Patient Instructions Diet: Diabetic Diet Activity: As Tolerated Driving: Do Not Drive Showering/Bathing: May Shower - Discharge Plan *PRESCRIPTION DRUG MONITORING PROGRAM REVIEWED*: No *COPY OF PRESCRIPTION DRUG MONITORING REPORT IN PATIENT JIMMY: No Home Medications: Home Meds Aspirin [Halfprin] 81 mg PO DAILY@1200 #365 tab.ec 03/22/14 [Rx] Insulin Glarg,Human.Rec.Analog [LantUS Solostar] 12 units SQ BEDTIME 06/22/17 [History] Acetaminophen [Acetaminophen Extra Strength] 1,000 mg PO Q6H PRN 01/11/21 [History] Denosumab [Prolia] 60 mg SQ Q180D 01/11/21 [History] Hydrochlorothiazide/Lisinopril [Lisinopril/HCTZ 20-12.5 MG] 2 tab PO DAILY 01/11/21 [History] Mirtazapine 7.5 mg PO BEDTIME 01/11/21 [History] Pantoprazole Sodium [Protonix] 40 mg PO BIDAC 01/11/21 [History] atorvaSTATin [Lipitor] 10 mg PO BEDTIME 01/11/21 [History] metFORMIN HCl [Metformin HCl] 1,000 mg PO BIDMEALS 01/11/21 [History] - Discharge Summary/Plan Comment DC Time >30 min.: No - General Info Date of Service: 01/23/21 Subjective Update: Patient is ready for d/c back to assisted living today. She feels she is moving much better and is comfortable returning to living independently with her walker. She has not had any abdominal pain and is eating/drinking well. - Review of Systems General: Reports: No Symptoms HEENT: Reports: No Symptoms Pulmonary: Reports: No Symptoms Cardiovascular: Reports: No Symptoms Gastrointestinal: Reports: No Symptoms Genitourinary: Reports: No Symptoms Musculoskeletal: Reports: No Symptoms Skin: Reports: No Symptoms Neurological: Reports: No Symptoms - Patient Data Vitals - Most Recent: Last Vital Signs Temp 36.4 C 01/23/21 06:00 Pulse 74 01/23/21 06:00 Resp 16 01/23/21 06:00 BP 185/58 H 01/23/21 06:55 Pulse Ox 98 01/23/21 06:00 Weight - Most Recent: 54.913 kg I&O - Last 24 hours: Intake & Output 01/22/21 01/23/21 01/23/21 22:59 06:59 14:59 Intake Total 160 Balance 160 Lab Results - Last 24 hrs: Laboratory Results - last 24 hr 01/22/21 01/23/21 Range/Units 16:53 06:34 POC Glucose 159 H 80 (70-99) mg/dL Med Orders - Current: Current Medications Acetaminophen (Acetaminophen 325 Mg Tab) 650 mg PO Q4H PRN PRN Reason: Pain (Mild 1-3)/fever Aspirin (Aspirin 81 Mg Tab.Ec) 81 mg PO DAILY@1200 [facility] Last Admin: 01/22/21 13:09 Dose: 81 mg Documented by: Atorvastatin Calcium (Atorvastatin 10 Mg Tab) 10 mg PO BEDTIME [facility] Last Admin: 01/22/21 19:27 Dose: 10 mg Documented by: Dextrose/Water (50% Dextrose In Water 50 Ml Syringe) 50 ml IV ASDIRECTED PRN PRN Reason: Hypoglycemia Enoxaparin Sodium (Enoxaparin 30 Mg/0.3 Ml Syringe) 30 mg SUBCUT DAILY [facility] Last Admin: 01/22/21 07:56 Dose: 30 mg Documented by: Glucagon (Glucagon,Human Recombinant 1 Mg Vial) 1 mg IM ASDIRECTED PRN PRN Reason: Hypoglycemia Hydrochlorothiazide (Hydrochlorothiazide 12.5 Mg Cap) 12.5 mg PO DAILY [facility] Last Admin: 01/23/21 07:02 Dose: Not Given Documented by: Insulin Glargine (Insulin Glarg,Human.Rec.Analog 100 Unit/Ml) 14 unit SUBCUT BEDTIME [facility] Last Admin: 01/22/21 19:28 Dose: 14 units Documented by: Lisinopril (Lisinopril 20 Mg Tab) 20 mg PO DAILY [facility] Last Admin: 01/23/21 07:03 Dose: Not Given Documented by: Metformin HCl (Metformin 500 Mg Tab) 1,000 mg PO BIDMEALS [facility] Last Admin: 01/22/21 17:35 Dose: 1,000 mg Documented by: Mirtazapine (Mirtazapine 15 Mg Tab) 7.5 mg PO BEDTIME [facility] Last Admin: 01/22/21 19:27 Dose: 7.5 mg Documented by: Pantoprazole Sodium (Pantoprazole 40 Mg Tab.Cr) 40 mg PO BIDAC [facility] Last Admin: 01/23/21 06:32 Dose: 40 mg Documented by: Discontinued Medications Amoxicillin/Clavulanate Potassium (Amoxicillin/Clavulanate K 875-125 Mg Tab) 1 tab PO BIDMEALS [facility] Stop: 01/15/21 18:01 Last Admin: 01/15/21 17:34 Dose: 1 tab Documented by: Insulin Human Lispro (Insulin Lispro 100 Units/Ml 3 Ml Vial) 0 unit SUBCUT TIDMEALS [facility]; Protocol Last Admin: 01/21/21 07:45 Dose: Not Given Documented by: Lidocaine (Lidocaine 4% 1 Each Patch) 1 each TOP DAILY [facility] Last Admin: 01/21/21 07:45 Dose: Not Given Documented by: Lisinopril (Lisinopril 5 Mg Tab) 5 mg PO DAILY [facility] Last Admin: 01/17/21 08:58 Dose: Not Given Documented by: Lisinopril (Lisinopril 5 Mg Tab) 5 mg PO ONETIME ONE Stop: 01/16/21 18:30 Last Admin: 01/16/21 18:37 Dose: 5 mg Documented by: Lisinopril (Lisinopril 5 Mg Tab) 10 mg PO DAILY [facility] Last Admin: 01/21/21 07:46 Dose: 10 mg Documented by: - Exam General: Reports: Alert, Oriented, Cooperative, No Acute Distress HEENT: Reports: Mucous Membr. Moist/[place] Neck: Reports: Supple, Trachea Midline, No Thyromegaly. Denies: Lymphadenopathy Lungs: Reports: Clear to Auscultation, Normal Respiratory Effort Cardiovascular: Reports: Regular Rate, Regular Rhythm, No Murmurs GI/Abdominal Exam: Normal Bowel Sounds, Soft, Non-Tender, No Organomegaly, No Distention, No Mass Extremities: Normal Inspection, Non-Tender, No Pedal Edema, Normal Capillary Refill Skin: Reports: Warm, Dry, Intact Neurological: Reports: No New Focal Deficit
[2021-01-23] MEDS: Enoxaparin 30 MG/0.3 ML Syringe SUBCUT SCH (07:57)
[2021-01-23] MEDS: metFORMIN 500 MG Tab PO SCH (07:59)
[2021-01-23 08:00] VITALS: BP 177/61; PULSE 73
== END 2021-01-23 10:15 | disposition home or self-care (01) | DRG 683 ==
LOC: VM.MS 12:12
PROVIDERS: ADMIT Family Medicine; ATTEND Family Medicine
DX: N17.9 Acute kidney failure, unspecified (principal); K57.92 Diverticulitis of intestine, part unspecified, without perforation or abscess without bleeding; E86.0 Dehydration; I10 Essential (primary) hypertension; D64.9 Anemia, unspecified; E78.5 Hyperlipidemia, unspecified; E11.9 Type 2 diabetes mellitus without complications; K21.9 Gastro-esophageal reflux disease without esophagitis; M81.0 Age-related osteoporosis without current pathological fracture
CPT/HCPCS: 36415; 80048; 82947; 85025; 97110-GP; 97116-GP; A9270-GY; J1650; J1815-GY

== ENCOUNTER 2022-10-29 11:45 | Inpatient (IN) | payer MEDICARE, OTHER ==
[2022-10-29] MEDS ORDERED: Glucagon,Human Recombinant 1 MG Vial IV PRN (15:05)
[2022-10-29] MEDS ORDERED: Ondansetron 4 MG Tab.DIS PO PRN (15:05)
[2022-10-29] MEDS: Acetaminophen 500 MG Tab PO PRN (20:08)
[2022-10-29] MEDS: Mirtazapine 15 MG Tab PO SCH (20:08)
[2022-10-29] MEDS: atorvaSTATin 10 MG Tab PO SCH (20:10)
[2022-10-29] MEDS ORDERED: Insulin Lispro 100 Units/ML 3 ML Vial SUBCUT SCH (21:00)
[2022-10-29] MEDS ORDERED: DICLOFENAC SODIUM 50 MG PO SCH (21:00)
[2022-10-30] MEDS: Pantoprazole 40 MG Tab.CR PO SCH (06:32)
[2022-10-30] MEDS: Aspirin 81 MG Tab.EC PO SCH (08:37)
[2022-10-30] MEDS: Lisinopril 20 MG Tab PO SCH (08:37)
[2022-10-30] MEDS: Hydrochlorothiazide 25 MG Tab PO SCH (08:37)
[2022-10-30] MEDS: Insulin Lispro 100 Units/ML 3 ML Vial SUBCUT SCH ×4 (08:39→18:10)
[2022-10-30] MEDS: Diclofenac Sodium 1% Gel 100 GM Tube TOP SCH (08:45)
[2022-10-30] MEDS: Acetaminophen 500 MG Tab PO PRN (19:58)
[2022-10-30] MEDS: Diclofenac Sodium 50 MG Tab.EC PO SCH (19:59)
[2022-10-30] MEDS: Mirtazapine 15 MG Tab PO SCH (20:00)
[2022-10-30] MEDS: atorvaSTATin 10 MG Tab PO SCH (20:00)
[2022-10-30] MEDS: Insulin Glarg,Human.Rec.Analog 100 Unit/ML SUBCUT SCH (20:02)
[2022-10-31] MEDS: Pantoprazole 40 MG Tab.CR PO SCH (06:37)
[2022-10-31] MEDS: Aspirin 81 MG Tab.EC PO SCH (08:57)
[2022-10-31] MEDS: Insulin Lispro 100 Units/ML 3 ML Vial SUBCUT SCH ×3 (08:58→18:38)
[2022-10-31] MEDS: Lisinopril 20 MG Tab PO SCH (09:00)
[2022-10-31] MEDS: Hydrochlorothiazide 25 MG Tab PO SCH (09:00)
[2022-10-31] MEDS: Diclofenac Sodium 1% Gel 100 GM Tube TOP SCH (09:03)
[2022-10-31] MEDS: Diclofenac Sodium 50 MG Tab.EC PO SCH ×2 (09:16→20:43)
[2022-10-31] MEDS: Insulin Glarg,Human.Rec.Analog 100 Unit/ML SUBCUT SCH (20:41)
[2022-10-31] MEDS: Mirtazapine 15 MG Tab PO SCH (20:42)
[2022-10-31] MEDS: atorvaSTATin 10 MG Tab PO SCH (20:43)
[2022-10-31] MEDS: Acetaminophen 500 MG Tab PO PRN (20:43)
[2022-11-01] MEDS: Pantoprazole 40 MG Tab.CR PO SCH (06:46)
[2022-11-01] MEDS: Insulin Lispro 100 Units/ML 3 ML Vial SUBCUT SCH ×3 (08:34→20:23)
[2022-11-01] MEDS: Lisinopril 20 MG Tab PO SCH (08:35)
[2022-11-01] MEDS: Aspirin 81 MG Tab.EC PO SCH (08:35)
[2022-11-01] MEDS: Diclofenac Sodium 50 MG Tab.EC PO SCH ×2 (08:35→20:24)
[2022-11-01] MEDS: Hydrochlorothiazide 25 MG Tab PO SCH (08:35)
[2022-11-01] MEDS: Diclofenac Sodium 1% Gel 100 GM Tube TOP SCH (08:37)
[2022-11-01] MEDS: Insulin Glarg,Human.Rec.Analog 100 Unit/ML SUBCUT SCH (20:23)
[2022-11-01] MEDS: Acetaminophen 500 MG Tab PO PRN (20:24)
[2022-11-01] MEDS: Mirtazapine 15 MG Tab PO SCH (20:24)
[2022-11-01] MEDS: atorvaSTATin 10 MG Tab PO SCH (20:24)
[2022-11-02] MEDS: Pantoprazole 40 MG Tab.CR PO SCH (06:32)
[2022-11-02] MEDS: Hydrochlorothiazide 25 MG Tab PO SCH (08:17)
[2022-11-02] MEDS: Lisinopril 20 MG Tab PO SCH (08:17)
[2022-11-02] MEDS: Diclofenac Sodium 50 MG Tab.EC PO SCH ×2 (08:17→20:01)
[2022-11-02] MEDS: Aspirin 81 MG Tab.EC PO SCH (08:17)
[2022-11-02] MEDS: Diclofenac Sodium 1% Gel 100 GM Tube TOP SCH (08:18)
[2022-11-02] MEDS: Insulin Lispro 100 Units/ML 3 ML Vial SUBCUT SCH ×3 (08:18→18:20)
[2022-11-02] MEDS: Insulin Glarg,Human.Rec.Analog 100 Unit/ML SUBCUT SCH (20:00)
[2022-11-02] MEDS: atorvaSTATin 10 MG Tab PO SCH (20:01)
[2022-11-02] MEDS: Mirtazapine 15 MG Tab PO SCH (20:01)
[2022-11-02] MEDS: Acetaminophen 500 MG Tab PO PRN (20:02)
[2022-11-03] MEDS: Pantoprazole 40 MG Tab.CR PO SCH (06:11)
[2022-11-03] MEDS: Aspirin 81 MG Tab.EC PO SCH (09:00)
[2022-11-03] MEDS: Diclofenac Sodium 50 MG Tab.EC PO SCH ×2 (09:00→20:08)
[2022-11-03] MEDS: Lisinopril 20 MG Tab PO SCH (09:00)
[2022-11-03] MEDS: Insulin Lispro 100 Units/ML 3 ML Vial SUBCUT SCH ×3 (09:00→18:26)
[2022-11-03] MEDS: Diclofenac Sodium 1% Gel 100 GM Tube TOP SCH (09:01)
[2022-11-03] MEDS: Hydrochlorothiazide 25 MG Tab PO SCH (09:01)
[2022-11-03] MEDS: Insulin Glarg,Human.Rec.Analog 100 Unit/ML SUBCUT SCH (20:06)
[2022-11-03] MEDS: Acetaminophen 500 MG Tab PO PRN (20:08)
[2022-11-03] MEDS: Mirtazapine 15 MG Tab PO SCH (20:08)
[2022-11-03] MEDS: atorvaSTATin 10 MG Tab PO SCH (20:08)
[2022-11-04] MEDS: Pantoprazole 40 MG Tab.CR PO SCH (06:40)
[2022-11-04] MEDS: Insulin Lispro 100 Units/ML 3 ML Vial SUBCUT SCH ×3 (08:58→20:19)
[2022-11-04] MEDS: Hydrochlorothiazide 25 MG Tab PO SCH (09:03)
[2022-11-04] MEDS: Aspirin 81 MG Tab.EC PO SCH (09:03)
[2022-11-04] MEDS: Diclofenac Sodium 50 MG Tab.EC PO SCH ×2 (09:04→20:22)
[2022-11-04] MEDS: Lisinopril 20 MG Tab PO SCH (09:04)
[2022-11-04] MEDS: Diclofenac Sodium 1% Gel 100 GM Tube TOP SCH (09:04)
[2022-11-04] MEDS: Insulin Glarg,Human.Rec.Analog 100 Unit/ML SUBCUT SCH (20:20)
[2022-11-04] MEDS: Acetaminophen 500 MG Tab PO PRN (20:21)
[2022-11-04] MEDS: Mirtazapine 15 MG Tab PO SCH (20:22)
[2022-11-04] MEDS: atorvaSTATin 10 MG Tab PO SCH (20:22)
[2022-11-05] MEDS: Pantoprazole 40 MG Tab.CR PO SCH (06:38)
[2022-11-05] MEDS: Insulin Lispro 100 Units/ML 3 ML Vial SUBCUT SCH ×3 (09:13→18:54)
[2022-11-05] MEDS: Hydrochlorothiazide 25 MG Tab PO SCH (09:14)
[2022-11-05] MEDS: Aspirin 81 MG Tab.EC PO SCH (09:14)
[2022-11-05] MEDS: Diclofenac Sodium 50 MG Tab.EC PO SCH ×2 (09:15→20:35)
[2022-11-05] MEDS: Lisinopril 20 MG Tab PO SCH (09:16)
[2022-11-05] MEDS: Diclofenac Sodium 1% Gel 100 GM Tube TOP SCH (09:18)
[2022-11-05] MEDS: Insulin Glarg,Human.Rec.Analog 100 Unit/ML SUBCUT SCH (20:33)
[2022-11-05] MEDS: Mirtazapine 15 MG Tab PO SCH (20:35)
[2022-11-05] MEDS: atorvaSTATin 10 MG Tab PO SCH (20:35)
[2022-11-06] MEDS: Pantoprazole 40 MG Tab.CR PO SCH (06:34)
[2022-11-06] MEDS: Insulin Lispro 100 Units/ML 3 ML Vial SUBCUT SCH ×3 (08:17→18:10)
[2022-11-06] MEDS: Diclofenac Sodium 50 MG Tab.EC PO SCH ×2 (08:20→20:26)
[2022-11-06] MEDS: Diclofenac Sodium 1% Gel 100 GM Tube TOP SCH (08:20)
[2022-11-06] MEDS: Hydrochlorothiazide 25 MG Tab PO SCH (08:20)
[2022-11-06] MEDS: Aspirin 81 MG Tab.EC PO SCH (08:20)
[2022-11-06] MEDS: Lisinopril 20 MG Tab PO SCH (08:22)
[2022-11-06] MEDS: atorvaSTATin 10 MG Tab PO SCH (20:26)
[2022-11-06] MEDS: Mirtazapine 15 MG Tab PO SCH (20:26)
[2022-11-06] MEDS: Insulin Glarg,Human.Rec.Analog 100 Unit/ML SUBCUT SCH (20:33)
[2022-11-07] MEDS: Pantoprazole 40 MG Tab.CR PO SCH (06:25)
[2022-11-07] MEDS: Diclofenac Sodium 50 MG Tab.EC PO SCH ×2 (09:06→20:49)
[2022-11-07] MEDS: Hydrochlorothiazide 25 MG Tab PO SCH (09:07)
[2022-11-07] MEDS: Aspirin 81 MG Tab.EC PO SCH (09:07)
[2022-11-07] MEDS: Insulin Lispro 100 Units/ML 3 ML Vial SUBCUT SCH ×3 (09:08→18:26)
[2022-11-07] MEDS: Diclofenac Sodium 1% Gel 100 GM Tube TOP SCH (09:08)
[2022-11-07] MEDS: Lisinopril 20 MG Tab PO SCH (09:15)
[2022-11-07] MEDS: atorvaSTATin 10 MG Tab PO SCH (20:49)
[2022-11-07] MEDS: Acetaminophen 500 MG Tab PO PRN (20:49)
[2022-11-07] MEDS: Mirtazapine 15 MG Tab PO SCH (20:49)
[2022-11-07] MEDS: Insulin Glarg,Human.Rec.Analog 100 Unit/ML SUBCUT SCH (20:50)
[2022-11-08] MEDS: Pantoprazole 40 MG Tab.CR PO SCH (06:17)
[2022-11-08] MEDS: Lisinopril 20 MG Tab PO SCH (09:24)
[2022-11-08] MEDS: Diclofenac Sodium 50 MG Tab.EC PO SCH ×2 (09:25→20:18)
[2022-11-08] MEDS: Hydrochlorothiazide 25 MG Tab PO SCH (09:25)
[2022-11-08] MEDS: Insulin Lispro 100 Units/ML 3 ML Vial SUBCUT SCH ×3 (09:25→18:36)
[2022-11-08] MEDS: Aspirin 81 MG Tab.EC PO SCH (09:25)
[2022-11-08] MEDS: Diclofenac Sodium 1% Gel 100 GM Tube TOP SCH (09:26)
[2022-11-08] MEDS: atorvaSTATin 10 MG Tab PO SCH (20:18)
[2022-11-08] MEDS: Mirtazapine 15 MG Tab PO SCH (20:18)
[2022-11-08] MEDS: Acetaminophen 500 MG Tab PO PRN (20:18)
[2022-11-08] MEDS: Insulin Glarg,Human.Rec.Analog 100 Unit/ML SUBCUT SCH (20:18)
[2022-11-09] MEDS: Pantoprazole 40 MG Tab.CR PO SCH (06:21)
[2022-11-09] MEDS: Insulin Lispro 100 Units/ML 3 ML Vial SUBCUT SCH ×3 (09:58→18:03)
[2022-11-09] MEDS: Hydrochlorothiazide 25 MG Tab PO SCH (09:59)
[2022-11-09] MEDS: Lisinopril 20 MG Tab PO SCH (10:00)
[2022-11-09] MEDS: Diclofenac Sodium 50 MG Tab.EC PO SCH ×2 (10:00→20:26)
[2022-11-09] MEDS: Aspirin 81 MG Tab.EC PO SCH (10:09)
[2022-11-09] MEDS: Diclofenac Sodium 1% Gel 100 GM Tube TOP SCH (12:46)
[2022-11-09] MEDS: atorvaSTATin 10 MG Tab PO SCH (20:25)
[2022-11-09] MEDS: Mirtazapine 15 MG Tab PO SCH (20:25)
[2022-11-09] MEDS: Insulin Glarg,Human.Rec.Analog 100 Unit/ML SUBCUT SCH (20:25)
[2022-11-10] MEDS: Pantoprazole 40 MG Tab.CR PO SCH (06:10)
[2022-11-10] MEDS: Aspirin 81 MG Tab.EC PO SCH (08:15)
[2022-11-10] MEDS: Diclofenac Sodium 50 MG Tab.EC PO SCH ×2 (08:15→21:15)
[2022-11-10] MEDS: Hydrochlorothiazide 25 MG Tab PO SCH (08:16)
[2022-11-10] MEDS: Lisinopril 20 MG Tab PO SCH (08:16)
[2022-11-10] MEDS: Insulin Lispro 100 Units/ML 3 ML Vial SUBCUT SCH ×5 (08:19→18:11)
[2022-11-10] MEDS: Diclofenac Sodium 1% Gel 100 GM Tube TOP SCH (08:21)
[2022-11-10] MEDS: atorvaSTATin 10 MG Tab PO SCH (21:11)
[2022-11-10] MEDS: Mirtazapine 15 MG Tab PO SCH (21:12)
[2022-11-10] MEDS: Insulin Glarg,Human.Rec.Analog 100 Unit/ML SUBCUT SCH (21:15)
[2022-11-11] MEDS: Pantoprazole 40 MG Tab.CR PO SCH (06:15)
[2022-11-11] MEDS: Insulin Lispro 100 Units/ML 3 ML Vial SUBCUT SCH ×5 (08:54→17:22)
[2022-11-11] MEDS: Hydrochlorothiazide 25 MG Tab PO SCH (08:56)
[2022-11-11] MEDS: Aspirin 81 MG Tab.EC PO SCH (08:56)
[2022-11-11] MEDS: Lisinopril 20 MG Tab PO SCH (08:56)
[2022-11-11] MEDS: Diclofenac Sodium 50 MG Tab.EC PO SCH ×2 (08:56→20:24)
[2022-11-11] MEDS: Diclofenac Sodium 1% Gel 100 GM Tube TOP SCH (08:57)
[2022-11-11] MEDS: Mirtazapine 15 MG Tab PO SCH (20:24)
[2022-11-11] MEDS: Insulin Glarg,Human.Rec.Analog 100 Unit/ML SUBCUT SCH (20:25)
[2022-11-11] MEDS: atorvaSTATin 10 MG Tab PO SCH (20:26)
[2022-11-12] MEDS: Pantoprazole 40 MG Tab.CR PO SCH (06:39)
[2022-11-12] MEDS: Insulin Lispro 100 Units/ML 3 ML Vial SUBCUT SCH ×3 (07:37→17:46)
[2022-11-12] MEDS: amLODIPine 5 MG Tab PO SCH (08:59)
[2022-11-12] MEDS: Diclofenac Sodium 50 MG Tab.EC PO SCH ×2 (08:59→20:39)
[2022-11-12] MEDS: Lisinopril 20 MG Tab PO SCH (08:59)
[2022-11-12] MEDS: Aspirin 81 MG Tab.EC PO SCH (08:59)
[2022-11-12] MEDS: Diclofenac Sodium 1% Gel 100 GM Tube TOP SCH (09:00)
[2022-11-12] MEDS: atorvaSTATin 10 MG Tab PO SCH (20:38)
[2022-11-12] MEDS: Mirtazapine 15 MG Tab PO SCH (20:39)
[2022-11-13] MEDS: Insulin Glarg,Human.Rec.Analog 100 Unit/ML SUBCUT SCH ×2 (01:22→20:38)
[2022-11-13] MEDS: Pantoprazole 40 MG Tab.CR PO SCH (07:26)
[2022-11-13] MEDS: Insulin Lispro 100 Units/ML 3 ML Vial SUBCUT SCH ×3 (09:10→18:28)
[2022-11-13] MEDS: Aspirin 81 MG Tab.EC PO SCH (09:10)
[2022-11-13] MEDS: Lisinopril 20 MG Tab PO SCH (09:11)
[2022-11-13] MEDS: amLODIPine 5 MG Tab PO SCH (09:12)
[2022-11-13] MEDS: Diclofenac Sodium 1% Gel 100 GM Tube TOP SCH (09:12)
[2022-11-13] MEDS: Diclofenac Sodium 50 MG Tab.EC PO SCH ×2 (09:18→20:39)
[2022-11-13 12:36] LABS: ANION GAP 16.9 mmol/L (5-15)
[2022-11-13] MEDS: atorvaSTATin 10 MG Tab PO SCH (20:39)
[2022-11-13] MEDS: Mirtazapine 15 MG Tab PO SCH (20:39)
[2022-11-13] MEDS: Acetaminophen 500 MG Tab PO PRN (20:40)
[2022-11-14 06:13] VITALS: BP 188/74; PULSE 74
[2022-11-14] MEDS: Pantoprazole 40 MG Tab.CR PO SCH (07:05)
[2022-11-14] MEDS: Diclofenac Sodium 50 MG Tab.EC PO SCH (08:02)
[2022-11-14] MEDS: Aspirin 81 MG Tab.EC PO SCH (08:03)
[2022-11-14] MEDS: amLODIPine 5 MG Tab PO SCH (08:04)
[2022-11-14] MEDS: Lisinopril 20 MG Tab PO SCH (08:04)
[2022-11-14] MEDS: Diclofenac Sodium 1% Gel 100 GM Tube TOP SCH (08:06)
[2022-11-14] MEDS: Insulin Lispro 100 Units/ML 3 ML Vial SUBCUT SCH ×2 (08:30→11:40)
== END 2022-11-14 12:15 | disposition home or self-care (01) | DRG 948 ==
LOC: VM.MS 13:30
PROVIDERS: ADMIT Family Medicine; ATTEND Family Medicine
DX: R53.81 Other malaise (principal); I49.5 Sick sinus syndrome; Z95.0 Presence of cardiac pacemaker; N18.32 Chronic kidney disease, stage 3b; E11.22 Type 2 diabetes mellitus with diabetic chronic kidney disease; K21.9 Gastro-esophageal reflux disease without esophagitis; E78.5 Hyperlipidemia, unspecified; Z66 Do not resuscitate; I12.9 Hypertensive chronic kidney disease with stage 1 through stage 4 chronic kidney disease, or unspecified chronic kidney disease; M81.0 Age-related osteoporosis without current pathological fracture; E86.0 Dehydration; Z79.4 Long term (current) use of insulin; Z88.1 Allergy status to other antibiotic agents; Z79.899 Other long term (current) drug therapy; Z79.82 Long term (current) use of aspirin; Z90.49 Acquired absence of other specified parts of digestive tract; Z98.49 Cataract extraction status, unspecified eye
CPT/HCPCS: 36415; 80048; 82947; 85025; 95851-GO; 97110-GP; 97116-GP; 97161-GP; 97165-GO; 97530-GP; 97535-GO; A9270-GY; J1815-GY